=== PATIENT | female | born 1935 | race Caucasian/White ===

== ENCOUNTER → 2018-10-22 09:52 | Outpatient (CLI) | payer OTHER, SELFPAY ==
--- NOTE | 2018-10-22 | DI.RAD.S_ITS ---
PROCEDURE: XR SHOULDER RT MIN 2V INDICATIONS: PAIN IN RIGHT SHOULDER TECHNIQUE: 3 views of the shoulder were acquired. COMPARISON: None. FINDINGS: Bones: No fractures or dislocations. No suspicious bony lesions. Visualized ribs appear intact. Possible bone island projecting in the humeral head. Mild acromioclavicular and glenohumeral joint degeneration. Soft tissues: No suspicious soft tissue calcifications. IMPRESSION: Right shoulder joint degeneration. No fracture. Dictated by: Brown Giordano M.D. on 10/22/2018 at 16:32 Approved by: Brown Giordano M.D. on 10/22/2018 at 16:33
--- NOTE | 2018-10-22 | DI.RAD.S_ITS ---
PROCEDURE: XR LUMBAR SPINE 2-3V INDICATIONS: PAIN IN LEG TECHNIQUE: 3 views of the lumbar spine were acquired. COMPARISON: None. FINDINGS: Bones: No fracture or focal osseous destruction. Mild focal dextrocurvature centered at the L2-L3 level. Diffuse facet arthropathy. Adjacent sclerosis and spurring. Moderate to severe narrowing of all of the lumbar disc spaces with relative sparing at L3-L4. Trace retrolisthesis of L2 on L3. Soft tissues: Overlying bowel gas pattern is normal. No suspicious soft tissue calcifications. IMPRESSION: Severe diffuse lumbar spondylosis and facet arthropathy. Grade 1 retrolisthesis of L2 on L3. No fracture Dictated by: Brown Giordano M.D. on 10/22/2018 at 13:51 Approved by: Brown Giordano M.D. on 10/22/2018 at 13:52
--- NOTE | 2018-10-22 | DI.RAD.S_ITS ---
PROCEDURE: XR HIP W PEL IF DONE RT 2V INDICATIONS: PAIN IN LEG TECHNIQUE: AP pelvis with lateral view(s) of the right hip(s). COMPARISON: None. FINDINGS: Bones: No fractures or dislocations. Pelvic ring appears intact. No suspicious bony lesions. Mild right hip joint degeneration. Soft tissues: The visualized bowel gas pattern is normal. No suspicious soft tissue calcifications. IMPRESSION: Mild right hip joint degeneration. No fracture. Dictated by: Bronw Giordano M.D. on 10/22/2018 at 16:33 Approved by: Brown Giordano M.D. on 10/22/2018 at 16:34
== END ==
PROVIDERS: PCP Internal Medicine; Visit Provider Internal Medicine
DX: M25.511 Pain in right shoulder (principal); M79.606 Pain in leg, unspecified; M47.816 Spondylosis without myelopathy or radiculopathy, lumbar region; M43.16 Spondylolisthesis, lumbar region; M19.011 Primary osteoarthritis, right shoulder; M16.11 Unilateral primary osteoarthritis, right hip
CPT/HCPCS: 72100; 73030; 73502

== ENCOUNTER 2019-02-17 12:45 | Outpatient (RCR) | payer OTHER, SELFPAY ==
--- NOTE | 2018-11-29 15:00 | PT.OIE ---
Current Diagnoses Osteoarthritis of hip, unspecified (11/29/18) Impingement syndrome of unspecified shoulder (11/29/18) Provider Visit Care Team Role Provider Type Grazyna Obrien MD Attending Provider Non-Staff Primary Care Provider Specialty: Internal Medicine Address: [address] [place] [address], [facility] Email: [email or web address] Initial Evaluation PT-OP-A Visit Information Start: 11/22/18 17:19 Freq: Status: Active Protocol: Document 11/29/18 11:19 LRN (Rec: 11/29/18 12:45 LRN [id number]) Out-Patient Physical Therapy Visit Information Visit Information Visit Type Initial Evaluation Visit Start Time 11:23 Visit Stop Time 12:10 Total Visit Minutes 47 Visit Number 1 Number of INSURANCE PROCESSOR Visits 0 Evaluation Information Evaluation Date 11/29/18 Precautions Precautions Osteoporosis Hearing problems Arthritis Grade 1 retrolisthesis of L2 on L3 L2-L3 centered mild focal dextrocurvature L3-L4 Mod to severe narrowing of L/S disc spaces Severe diffuse lumbar spondylosis and facet arthropathy PT-OP-B Current Condition Start: 11/22/18 17:19 Freq: Status: Active Protocol: Document 11/29/18 11:19 LRN (Rec: 11/29/18 12:45 LRN [id number]) Current Condition History of Current Condition Onset Date 7 yrs ago insidious onset. Current Complaints R hip pain, no R shoulder pain . History of Current Condition Used to ski and fell on the R hip a lot. Now with R lateral hip pain for dimas past 7 years that increased in pain intensity 2 yrs ago. Pain is evident at night when changing positions and when lying on the R hip. She walks every morning with pain in the R posterior hip. The last 3 days she has had new onset of pain down the R groin, but if she starts jogging she doesn't feel the pain until she stops jogging. She does international folk dancing, and after awhile she gets pain in the anterior R hip (at level of the ASIS) that radiates downward towards the groin. She states the R shoulder is fine now and she doesn't need therapy for the shoulder. Prior Treatments and Tests X-Rays: R hip: Mild joint degeneration . No fractrures or dislocations Lumbar Spine: Grade 1 retolisthesis of L2 on L3. Mild focal dextrocurvature centered at L2-L3 Mod to severe narrowing of Lumbar disc spaces L3-L4 Future Testing and Treatments Planned Possible cortisone injection, but pt would rather not. Treatment Goals Patient/Caregiver Goals Pt goal is: Walk daily without pain Dance without pain Sleep better at night without pain Pt agreeable to a goal of pain reduction to 2/10 saying a little pain is okay. Prior Functional Status Baseline Function- ADL's Independent Baseline Function- Mobility Independent Current Functional Impairments (Reported) Functional Limitations- ADL's Sleeping hindered by pain. Functional Limitations- Recreation/ Dancing prevented by pain. Hobbies Personal Factors Other Personal Factors That May Effect Scoliosis of spine. Therapy/Recovery Osteoporosis. PT-OP-C Subjective Start: 11/22/18 17:19 Freq: Status: Active Protocol: Document 11/29/18 11:19 LRN (Rec: 11/29/18 12:45 LRN [id number]) Patient Questionnaires Lower Extremity Functional Scale LEFS Score 74 LEFS Impairment 1 to 19% Impaired (Score 63-79 ) Quick Dash- Upper Extremity Quick Dash UE Score 13.63 Quick Dash UE Impairment 1 to 19% Impaired (Score 1-19) OP-PT Pain Assessment Pain Assessment Grid Paper Pain Assessment Grid Completed Yes Location R lateral hip Pain Location Details R Posterior, lateral and at ASIS Intensity 4 Scale Used Numeric (1 - 10) Description Aching PT-OP-F Manual Assessment Start: 11/22/18 17:19 Freq: Status: Active Protocol: Document 11/29/18 11:19 LRN (Rec: 11/29/18 13:31 LRN [id number]) Manual Assessments Soft Tissue Assessment Soft Tissue Mobility Assessment Tenderness and tightness at R upper Gluteals, TFL and Iliopsoas at ASIS. PT-OP-H Neuro Start: 11/22/18 17:19 Freq: Status: Active Protocol: Document 11/29/18 11:19 LRN (Rec: 11/29/18 13:31 LRN [id number]) Sensation Evaluation Gross Sensation Gross Sensation WNL PT-OP-J Posture/Palpation/Skin Start: 11/22/18 17:19 Freq: Status: Active Protocol: Document 11/29/18 11:19 LRN (Rec: 11/29/18 13:31 LRN [id number]) Posture Evaluation Position Standing Evaluation View All positions Head/C-Spine Posture Side Bent Left Forward Head L-Spine Posture Decreased Lordosis Shoulder Posture (L) Elevated Scapula Posture (R) Depressed Pelvis Posture Posterior Tilted (R) Iliac Crest Superior Weight Distribution Weight Shifted Right Foot Arch (L) Medium Arch (R) Medium Arch Comments Posture Comments Sway back posturing. C-curve of thoracic/lumbar spine with apex left. PT-OP-K Range of Motion Start: 11/22/18 17:19 Freq: Status: Active Protocol: Document 11/29/18 11:19 LRN (Rec: 11/29/18 13:31 LRN [id number]) Hip Goniometric Range of Motion Hip Measured in Degrees Right Passive Testing Position Supine Straight Leg Raise 100 Extension 0 Abduction 40 Internal Rotation 50 External Rotation 30 Left Passive Testing Position Supine Straight Leg Raise 100 Extension 5 Internal Rotation 45 External Rotation 40 PT-OP-L Special Tests Start: 11/22/18 17:19 Freq: Status: Active Protocol: Document 11/29/18 11:19 LRN (Rec: 11/29/18 13:31 LRN [id number]) Special Tests Hip Special Tests Distraction Test Test Results - Right Comments Rule out SIJ involvement Lateral Compression Test Test Results - Right Comments Rule out SIJ involvement Straight Leg Raise Test Results - Right Stinchfield Resisted Hip Flexion Test Results - Right Scour Test Test Results - Right LEONORA Test Results + Right Comments Pain with positioning into test position PT-OP-M Strength Start: 11/22/18 17:19 Freq: Status: Active Protocol: Document 11/29/18 11:19 LRN (Rec: 11/29/18 13:31 LRN [id number]) Hip Strength Hip Manual Muscle Testing Right Flexion (L2) 3 Fair Extension (S1) 2+ Poor+ Abduction 3 Fair Adduction 2- Poor- Internal Rotation 3 Fair Left Flexion (L2) 3 Fair Extension (S1) 3 Fair Abduction 3+ Fair+ External Rotation 3 Fair Internal Rotation 4+ Good+ Knee Strength Knee Manual Muscle Testing Right Reason Not Measured WFL Left Reason Not Measured WFL Ankle/Foot Strength Ankle and Foot Manual Muscle Testing Right Reason Not Measured WFL Left Reason Not Measured WFL PT-OP-Q Treatments Start: 11/22/18 17:19 Freq: Status: Active Protocol: Document 11/29/18 11:19 LRN (Rec: 11/29/18 13:31 LRN [id number]) Therapeutic Exercises Sidelying Exercises L sidelie Sidelying Exercise Name L side 2/folded towel ~L2-L4 level for R paraspinal/lateral trunk stretch Equipment Used Folded hand towel Comments Pt educated in positioning as self care exercise vs positioning for sleep. Self-Care/Home Management Treatment Education Patient Education Posture Activities Self-Care/Home Management Activities I/S pt in use of support under L1-L5 lateral trunk in sidelie while sleeping to support lumbar spine. Extra time taken to train pt in sleeping position. PT-OP-T Assessment and Plan Start: 11/22/18 17:19 Freq: Status: Active Protocol: Document 11/29/18 11:19 LRN (Rec: 11/29/18 12:45 LRN [id number]) Physical Therapy Assessment Rehab Potential Rehabilitation Potential Excellent Evaluation Complexity Number of Personal Factors/Comorbidities 1-2 Number of Body Systems Impaired 4 or More Clinical Presentation at Evaluation Stable Impairments Impairments Functional Activities Pain Posture ROM Strength Other Concerns Age Related Concerns Impact on family and social activities. Barriers to Rehabilitation Scoliosis Osteoporosis Goals Four Impairment R hip pain rated 4/10 with sleeping and moving in bed, interrupting sleep Cutter Operator Brick Goal (LTG) Pt will be able to move in bed at night with pain no greater than 2/10 and improve abilit to sleep at night (less interrupted sleep due to pain) . LTG Duration 01/31/19 Three Impairment R hip pain rated 4/10 preventing participate in recreational dancing Usp Goal (LTG) Pt will not be hindered to dance with intermittent R hip pain no greater than 2/10. LTG Duration 01/03/19 Two Impairment Pt hindered with walking due to 4/10 pain level. Cutter Operator Brick Goal (LTG) Pt will be able to walk with intermittent R hip pain rated no greater than 2/10 that will not hinder her ability to walk. LTG Duration 01/03/19 One Impairment Lacks independent self care program. Cutter Operator Brick Goal (LTG) Pt will be independent with a self care HEP to manage her pain. LTG Duration 01/31/19 Assessment Summary Assessment Pt presents with a mechanical dysfunction of the lumbar spine, pelvis, and R hip causing intermittent R hip pain with functional activities such as walking, dancing and sleeping at night. She has a scoliosis of the spine and sway back posturing with narrowing of lumbar disc space and a grade I retrolisthesis of L2 -L3 exacerbating her R hip pain. The pt also has soft tissue dysfunction of the R hip limiting hip mobility and causing asymmetry at the hips. The pt will benefit from skilled physical therapy to reduce her R hip pain and educate the pt in self care ex 's to manage her pain. Physical Therapy Plan Frequency and Duration Frequency of Treatment 2x/Week Plan of Care Start Date 11/29/18 Plan of Care End Date 01/31/19 Therapeutic Interventions Therapeutic Interventions Gait Training Home Exercise Program Joint Mobilizations Manual Therapy Neuromuscular Re-education Patient/Caregiver Education Self-Care/Home Management Soft Tissue Mobilization Therapeutic Exercises Modalities Cold Pack/Ice Massage Electric Stimulation Hot Packs Ultrasound Next Visit Focus/Plan Next Note Type Treatment Note Next Visit Plan L sidelie to stretch R lumbar paraspinals & lateral trunk Strengthen R lumbar paraspinals & lateral trunk R hip stretches Joseph hip and core strengthening Postural training against wall or supine Gait training when appropriate .
--- NOTE | 2018-11-29 15:01 | PT.OPPOC ---
Current Diagnoses Osteoarthritis of hip, unspecified (11/29/18) Impingement syndrome of unspecified shoulder (11/29/18) Provider Visit Care Team Role Provider Type Grazyna Obrien MD Attending Provider Non-Staff Primary Care Provider Specialty: Internal Medicine Address: [address] [place] [address], [id number] Email: [email or web address] Plan Of Care PT-OP-T Assessment and Plan Start: 11/22/18 17:19 Freq: Status: Active Protocol: Document 11/29/18 11:19 LRN (Rec: 11/29/18 12:45 LRN [id number]) Physical Therapy Assessment Rehab Potential Rehabilitation Potential Excellent Evaluation Complexity Number of Personal Factors/Comorbidities 1-2 Number of Body Systems Impaired 4 or More Clinical Presentation at Evaluation Stable Impairments Impairments Functional Activities Pain Posture ROM Strength Other Concerns Age Related Concerns Impact on family and social activities. Barriers to Rehabilitation Scoliosis Osteoporosis Goals Four Impairment R hip pain rated 4/10 with sleeping and moving in bed, interrupting sleep Correction Goal (LTG) Pt will be able to move in bed at night with pain no greater than 2/10 and improve ability to sleep at night (less interrupted sleep due to pain) . LTG Duration 01/31/19 Three Impairment R hip pain rated 4/10 preventing participate in recreational dancing Bridge Rigger Goal (LTG) Pt will not be hindered to dance with intermittent R hip pain no greater than 2/10. LTG Duration 01/03/19 Two Impairment Pt hindered with walking due to 4/10 pain level. Correction Goal (LTG) Pt will be able to walk with intermittent R hip pain rated no greater than 2/10 that will not hinder her ability to walk. LTG Duration 01/03/19 One Impairment Lacks independent self care program. Correction Goal (LTG) Pt will be independent with a self care HEP to manage her pain. LTG Duration 01/31/19 Assessment Summary Assessment Pt presents with a mechanical dysfunction of the lumbar spine, pelvis, and R hip causing intermittent R hip pain with functional activities such as walking, dancing and sleeping at night. She has a scoliosis of the spine and sway back posturing with narrowing of lumbar disc space and a grade I retrolisthesis of L2 -L3 exacerbating her R hip pain. The pt also has soft tissue dysfunction of the R hip limiting hip mobility and causing asymmetry at the hips. The pt will benefit from skilled physical therapy to reduce her R hip pain and educate the pt in self care ex 's to manage her pain. Physical Therapy Plan Frequency and Duration Frequency of Treatment 2x/Week Plan of Care Start Date 11/29/18 Plan of Care End Date 01/31/19 Therapeutic Interventions Therapeutic Interventions Gait Training Home Exercise Program Joint Mobilizations Manual Therapy Neuromuscular Re-education Patient/Caregiver Education Self-Care/Home Management Soft Tissue Mobilization Therapeutic Exercises Modalities Cold Pack/Ice Massage Electric Stimulation Hot Packs Ultrasound Next Visit Focus/Plan Next Note Type Treatment Note Next Visit Plan L sidelie to stretch R lumbar paraspinals & lateral trunk Strengthen R lumbar paraspinals & lateral trunk R hip stretches Joseph hip and core strengthening Postural training against wall or supine Gait training when appropriate . Plan of Care Dates Plan of Care Start Date 11/29/18 Plan of Care End Date 01/31/19 Please Sign and Return: I have reviewed this Plan of Care and certify that the skilled therapy services above are required to meet the patient?s needs. Physician Signature Date Printed Name and Credentials Clinical Instructor Signature Printed Name and Credentials
--- NOTE | 2018-12-02 16:49 | PT.OTN ---
Current Diagnoses Osteoarthritis of hip, unspecified (12/02/18) Impingement syndrome of unspecified shoulder (12/02/18) Physical Therapy Treatment Note PT-OP-A Visit Information Start: 11/22/18 17:19 Freq: Status: Active Protocol: Document 12/02/18 09:06 LRN (Rec: 12/02/18 10:33 LRN [id number]) Out-Patient Physical Therapy Visit Information Visit Information Visit Type Treatment Note Visit Start Time 09:06 Visit Stop Time 09:53 Total Visit Minutes 47 Visit Number 2 Number of AUTO DAMAGE APPRAISER Visits 0 Evaluation Information Evaluation Date 11/29/18 Precautions Precautions Osteoporosis Hearing problems Arthritis Grade 1 retrolisthesis of L2 on L3 L2-L3 centered mild focal dextrocurvature L3-L4 Mod to severe narrowing of L/S disc spaces Severe diffuse lumbar spondylosis and facet arthropathy PT-OP-B Current Condition Start: 11/22/18 17:19 Freq: Status: Active Protocol: Document 11/29/18 11:19 LRN (Rec: 11/29/18 12:45 LRN [id number]) Current Condition History of Current Condition Onset Date 7 yrs ago insidious onset. Current Complaints R hip pain, no R shoulder pain . History of Current Condition Used to ski and fell on the R hip a lot. Now with R lateral hip pain for dimas past 7 years that increased in pain intensity 2 yrs ago. Pain is evident at night when changing positions and when lying on the R hip. She walks every morning with pain in the R posterior hip. The last 3 days she has had new onset of pain down the R groin, but if she starts jogging she doesn't feel the pain until she stops jogging. She does international folk dancing, and after awhile she gets pain in the anterior R hip (at level of the ASIS) that radiates downward towards the groin. She states the R shoulder is fine now and she doesn't need therapy for the shoulder. Prior Treatments and Tests X-Rays: R hip: Mild joint degeneration . No fractrures or dislocations Lumbar Spine: Grade 1 retolisthesis of L2 on L3. Mild focal dextrocurvature centered at L2-L3 Mod to severe narrowing of Lumbar disc spaces L3-L4 Future Testing and Treatments Planned Possible cortisone injection, but pt would rather not. Treatment Goals Patient/Caregiver Goals Pt goal is: Walk daily without pain Dance without pain Sleep better at night without pain Pt agreeable to a goal of pain reduction to 2/10 saying a little pain is okay. Prior Functional Status Baseline Function- ADL's Independent Baseline Function- Mobility Independent Current Functional Impairments (Reported) Functional Limitations- ADL's Sleeping hindered by pain. Functional Limitations- Recreation/ Dancing prevented by pain. Hobbies Personal Factors Other Personal Factors That May Effect Scoliosis of spine. Therapy/Recovery Osteoporosis. PT-OP-C Subjective Start: 11/22/18 17:19 Freq: Status: Active Protocol: Document 12/02/18 09:06 LRN (Rec: 12/02/18 10:33 LRN [id number]) OP-PT Subjective Patient Comments Patient Comments 1/2 hr of folk dancing the R hip started to hurt and had a tough night and the next day felt pretty good, which was surprising. Did the L sidelie stretch PT-OP-F Manual Assessment Start: 11/22/18 17:19 Freq: Status: Active Protocol: Document 11/29/18 11:19 LRN (Rec: 11/29/18 13:31 LRN [id number]) Manual Assessments Soft Tissue Assessment Soft Tissue Mobility Assessment Tenderness and tightness at R upper Gluteals, TFL and Iliopsoas at ASIS. PT-OP-H Neuro Start: 11/22/18 17:19 Freq: Status: Active Protocol: Document 11/29/18 11:19 LRN (Rec: 11/29/18 13:31 LRN [id number]) Sensation Evaluation Gross Sensation Gross Sensation WNL PT-OP-J Posture/Palpation/Skin Start: 11/22/18 17:19 Freq: Status: Active Protocol: Document 11/29/18 11:19 LRN (Rec: 11/29/18 13:31 LRN [id number]) Posture Evaluation Position Standing Evaluation View All positions Head/C-Spine Posture Side Bent Left Forward Head L-Spine Posture Decreased Lordosis Shoulder Posture (L) Elevated Scapula Posture (R) Depressed Pelvis Posture Posterior Tilted (R) Iliac Crest Superior Weight Distribution Weight Shifted Right Foot Arch (L) Medium Arch (R) Medium Arch Comments Posture Comments Sway back posturing. C-curve of thoracic/lumbar spine with apex left. PT-OP-K Range of Motion Start: 11/22/18 17:19 Freq: Status: Active Protocol: Document 11/29/18 11:19 LRN (Rec: 11/29/18 13:31 LRN [id number]) Hip Goniometric Range of Motion Hip Measured in Degrees Right Passive Testing Position Supine Straight Leg Raise 100 Extension 0 Abduction 40 Internal Rotation 50 External Rotation 30 Left Passive Testing Position Supine Straight Leg Raise 100 Extension 5 Internal Rotation 45 External Rotation 40 PT-OP-L Special Tests Start: 11/22/18 17:19 Freq: Status: Active Protocol: Document 11/29/18 11:19 LRN (Rec: 11/29/18 13:31 LRN [id number]) Special Tests Hip Special Tests Distraction Test Test Results - Right Comments Rule out SIJ involvement Lateral Compression Test Test Results - Right Comments Rule out SIJ involvement Straight Leg Raise Test Results - Right Stinchfield Resisted Hip Flexion Test Results - Right Scour Test Test Results - Right LEONORA Test Results + Right Comments Pain with positioning into test position PT-OP-M Strength Start: 11/22/18 17:19 Freq: Status: Active Protocol: Document 11/29/18 11:19 LRN (Rec: 11/29/18 13:31 LRN [id number]) Hip Strength Hip Manual Muscle Testing Right Flexion (L2) 3 Fair Extension (S1) 2+ Poor+ Abduction 3 Fair Adduction 2- Poor- Internal Rotation 3 Fair Left Flexion (L2) 3 Fair Extension (S1) 3 Fair Abduction 3+ Fair+ External Rotation 3 Fair Internal Rotation 4+ Good+ Knee Strength Knee Manual Muscle Testing Right Reason Not Measured WFL Left Reason Not Measured WFL Ankle/Foot Strength Ankle and Foot Manual Muscle Testing Right Reason Not Measured WFL Left Reason Not Measured WFL PT-OP-Q Treatments Start: 11/22/18 17:19 Freq: Status: Active Protocol: Document 12/02/18 09:06 LRN (Rec: 12/02/18 10:33 LRN [id number]) Cardio Equipment Recumbent Elliptical (Biodex) Duration (Minutes) 8 Resistance 3 Seat Position 5 Therapeutic Exercises Supine Exercises Arms out BKFO stretch Supine Exercise Name Supine frog stretch Reps/Minutes 2' R full body sidebend stretch Supine Exercise Name R sidebend Reps/Minutes 5' Comments Training needed to feel stretch on L side Sidelying Exercises Clamshell Side right Reps/Minutes 10x Comments Stopped due to pain at R greater trochanter Arm AB lifts Sidelying Exercise Name L sidelie Side right Resistance 1# Reps/Minutes 15x with and w/o weight R sidelie Sidelying Exercise Name Stretch to L paraspinals Equipment Used 1 folded flat pillow & double folded towel Reps/Minutes 3' Comments Manual stretch f/b passive stretch L sidelie Sidelying Exercise Name Hip AB Side right Reps/Minutes Hip AB: 10x . Manual Therapy Treatment Manual Traction Gapping Left L/S Details Positional traction of Left L/ S & Supine Comments 1) R sidelie with pillow under R side 2) Supine positioned in R SB Self-Care/Home Management Treatment Education Patient Education Home Exercise Program Activities Self-Care/Home Management Activities Issued & reviewed HEP: Positional traction of Left L/ S & Supine 1) R sidelie with pillow under R side 2) HOLD: Supine positioned in R SB 3) Supine w/Double BFO full trunk stretch 4) L sidelie: R hip AB PT-OP-T Assessment and Plan Start: 11/22/18 17:19 Freq: Status: Active Protocol: Document 12/02/18 09:06 LRN (Rec: 12/02/18 10:33 LRN [id number]) Physical Therapy Assessment Assessment Summary Assessment C-curve appears to now have apex on the Right. A little discomfort in the R hip with Biodex. R hip pain relieved with positional traction. R hip pain onset with L sidelie, R hip AB and is painful on palpation; therefore burisitis onset. Physical Therapy Plan Frequency and Duration Frequency of Treatment 2x/Week Plan of Care Start Date 11/29/18 Plan of Care End Date 01/31/19 Next Visit Focus/Plan Next Note Type Treatment Note Next Visit Plan Assess direction of C-Curve to strengthen weak side and stretch concave side. Add Postural training against wall Strengthen lengthened lumbar paraspinals & lateral trunk R hip stretches Joseph hip and core strengthening Gait training when appropriate .
--- NOTE | 2018-12-09 16:41 | PT.OTN ---
Current Diagnoses Osteoarthritis of hip, unspecified (12/09/18) Impingement syndrome of unspecified shoulder (12/09/18) Physical Therapy Treatment Note PT-OP-A Visit Information Start: 11/22/18 17:19 Freq: Status: Active Protocol: Document 12/09/18 09:04 LRN (Rec: 12/09/18 09:49 LRN [id number]) Out-Patient Physical Therapy Visit Information Visit Information Visit Type Treatment Note Visit Start Time 09:04 Visit Stop Time 09:59 Total Visit Minutes 55 Visit Number 3 Number of STEAM POWER PLANT OPERATOR Visits 0 Evaluation Information Evaluation Date 11/29/18 Precautions Precautions Osteoporosis Hearing problems Arthritis Grade 1 retrolisthesis of L2 on L3 L2-L3 centered mild focal dextrocurvature L3-L4 Mod to severe narrowing of L/S disc spaces Severe diffuse lumbar spondylosis and facet arthropathy PT-OP-B Current Condition Start: 11/22/18 17:19 Freq: Status: Active Protocol: Document 11/29/18 11:19 LRN (Rec: 11/29/18 12:45 LRN [id number]) Current Condition History of Current Condition Onset Date 7 yrs ago insidious onset. Current Complaints R hip pain, no R shoulder pain . History of Current Condition Used to ski and fell on the R hip a lot. Now with R lateral hip pain for dimas past 7 years that increased in pain intensity 2 yrs ago. Pain is evident at night when changing positions and when lying on the R hip. She walks every morning with pain in the R posterior hip. The last 3 days she has had new onset of pain down the R groin, but if she starts jogging she doesn't feel the pain until she stops jogging. She does international folk dancing, and after awhile she gets pain in the anterior R hip (at level of the ASIS) that radiates downward towards the groin. She states the R shoulder is fine now and she doesn't need therapy for the shoulder. Prior Treatments and Tests X-Rays: R hip: Mild joint degeneration . No fractrures or dislocations Lumbar Spine: Grade 1 retolisthesis of L2 on L3. Mild focal dextrocurvature centered at L2-L3 Mod to severe narrowing of Lumbar disc spaces L3-L4 Future Testing and Treatments Planned Possible cortisone injection, but pt would rather not. Treatment Goals Patient/Caregiver Goals Pt goal is: Walk daily without pain Dance without pain Sleep better at night without pain Pt agreeable to a goal of pain reduction to 2/10 saying a little pain is okay. Prior Functional Status Baseline Function- ADL's Independent Baseline Function- Mobility Independent Current Functional Impairments (Reported) Functional Limitations- ADL's Sleeping hindered by pain. Functional Limitations- Recreation/ Dancing prevented by pain. Hobbies Personal Factors Other Personal Factors That May Effect Scoliosis of spine. Therapy/Recovery Osteoporosis. PT-OP-C Subjective Start: 11/22/18 17:19 Freq: Status: Active Protocol: Document 12/09/18 09:04 LRN (Rec: 12/09/18 09:49 LRN [id number]) OP-PT Subjective Patient Comments Patient Comments R hip hurt a lot last night but was pretty good the day before. Not taking any med, but herbs. Has Meloxicam from , but doesn't think it is helpful. PT-OP-F Manual Assessment Start: 11/22/18 17:19 Freq: Status: Active Protocol: Document 11/29/18 11:19 LRN (Rec: 11/29/18 13:31 LRN [id number]) Manual Assessments Soft Tissue Assessment Soft Tissue Mobility Assessment Tenderness and tightness at R upper Gluteals, TFL and Iliopsoas at ASIS. PT-OP-H Neuro Start: 11/22/18 17:19 Freq: Status: Active Protocol: Document 11/29/18 11:19 LRN (Rec: 11/29/18 13:31 LRN [id number]) Sensation Evaluation Gross Sensation Gross Sensation WNL PT-OP-J Posture/Palpation/Skin Start: 11/22/18 17:19 Freq: Status: Active Protocol: Document 11/29/18 11:19 LRN (Rec: 11/29/18 13:31 LRN [id number]) Posture Evaluation Position Standing Evaluation View All positions Head/C-Spine Posture Side Bent Left Forward Head L-Spine Posture Decreased Lordosis Shoulder Posture (L) Elevated Scapula Posture (R) Depressed Pelvis Posture Posterior Tilted (R) Iliac Crest Superior Weight Distribution Weight Shifted Right Foot Arch (L) Medium Arch (R) Medium Arch Comments Posture Comments Sway back posturing. C-curve of thoracic/lumbar spine with apex left. PT-OP-K Range of Motion Start: 11/22/18 17:19 Freq: Status: Active Protocol: Document 11/29/18 11:19 LRN (Rec: 11/29/18 13:31 LRN [id number]) Hip Goniometric Range of Motion Hip Measured in Degrees Right Passive Testing Position Supine Straight Leg Raise 100 Extension 0 Abduction 40 Internal Rotation 50 External Rotation 30 Left Passive Testing Position Supine Straight Leg Raise 100 Extension 5 Internal Rotation 45 External Rotation 40 PT-OP-L Special Tests Start: 11/22/18 17:19 Freq: Status: Active Protocol: Document 11/29/18 11:19 LRN (Rec: 11/29/18 13:31 LRN [id number]) Special Tests Hip Special Tests Distraction Test Test Results - Right Comments Rule out SIJ involvement Lateral Compression Test Test Results - Right Comments Rule out SIJ involvement Straight Leg Raise Test Results - Right Stinchfield Resisted Hip Flexion Test Results - Right Scour Test Test Results - Right LEONORA Test Results + Right Comments Pain with positioning into test position PT-OP-M Strength Start: 11/22/18 17:19 Freq: Status: Active Protocol: Document 11/29/18 11:19 LRN (Rec: 11/29/18 13:31 LRN [id number]) Hip Strength Hip Manual Muscle Testing Right Flexion (L2) 3 Fair Extension (S1) 2+ Poor+ Abduction 3 Fair Adduction 2- Poor- Internal Rotation 3 Fair Left Flexion (L2) 3 Fair Extension (S1) 3 Fair Abduction 3+ Fair+ External Rotation 3 Fair Internal Rotation 4+ Good+ Knee Strength Knee Manual Muscle Testing Right Reason Not Measured WFL Left Reason Not Measured WFL Ankle/Foot Strength Ankle and Foot Manual Muscle Testing Right Reason Not Measured WFL Left Reason Not Measured WFL PT-OP-Q Treatments Start: 11/22/18 17:19 Freq: Status: Active Protocol: Document 12/09/18 09:04 LRN (Rec: 12/09/18 09:49 LRN [id number]) Cardio Equipment Bicycle (Upright) Duration (Minutes) 8 Resistance 3 Seat Position 3 Therapeutic Exercises Supine Exercises Fig 4 stretch Side right Reps/Minutes 3' Arms out BKFO stretch Supine Exercise Name Supine frog stretch Reps/Minutes 2' R full body sidebend stretch Supine Exercise Name R sidebend Reps/Minutes 3' Sidelying Exercises R sidelie Sidelying Exercise Name Stretch to L paraspinals Equipment Used towel & hand towel folded 2-3x Reps/Minutes 4' Comments Manual stretch f/b passive stretch L sidelie Sidelying Exercise Name Hip AB Side right Reps/Minutes Hip AB: 10x , holding 10 sec . Standing Exercises Posture against wall Standing Exercise Name Back against wall Reps/Minutes 3' Manual Therapy Treatment Manual Traction Gapping Left L/S Details Positional traction of Left L/ S & Supine Comments 1) R sidelie with folded towels under R side Self-Care/Home Management Treatment Education Patient Education Home Exercise Program Activities Self-Care/Home Management Activities Issued & reviewed HEP: R Fig 4 stretch, R hip AB sidelie. PT-OP-R Modalities Start: 11/22/18 17:19 Freq: Status: Active Protocol: Document 12/09/18 09:04 LRN (Rec: 12/09/18 09:49 LRN [id number]) Hot Pack/Cold Pack Treatment Cold Pack Location R hip Patient Position Supine Treatment Duration (minutes) 10 PT-OP-T Assessment and Plan Start: 11/22/18 17:19 Freq: Status: Active Protocol: Document 12/09/18 09:04 LRN (Rec: 12/09/18 09:49 LRN [id number]) Physical Therapy Assessment Assessment Summary Assessment Good tolerance to ex. C-curve in L/S is with apex on R side . Pt started to get R hip discomfort with leg lifts that subsided with ex. US may be helpful with bursitis. Physical Therapy Plan Frequency and Duration Frequency of Treatment 2x/Week Plan of Care Start Date 11/29/18 Plan of Care End Date 01/31/19 Next Visit Focus/Plan Next Note Type Treatment Note Next Visit Plan Strengthen lengthened R lumbar paraspinals & lateral trunk side Review R hip stretches, add stretch to R hip flexors, Right IR's, check mobility for L hip ABD Joseph hip and core strengthening , add Dual Oleg hip AB/AD Gait training when appropriate . US to R hip for pain management.
--- NOTE | 2018-12-12 16:46 | PT.OTN ---
Current Diagnoses Osteoarthritis of hip, unspecified (12/12/18) Impingement syndrome of unspecified shoulder (12/12/18) Physical Therapy Treatment Note PT-OP-A Visit Information Start: 11/22/18 17:19 Freq: Status: Active Protocol: Document 12/12/18 09:04 LRN (Rec: 12/12/18 09:05 LRN [id number]) Out-Patient Physical Therapy Visit Information Visit Information Visit Type Treatment Note Visit Start Time 09:04 Visit Stop Time 10:00 Total Visit Minutes 56 Visit Number 4 Number of DIRECTOR OF DAT[employer]ASE MARKETING Visits 0 Evaluation Information Evaluation Date 11/29/18 Precautions Precautions Osteoporosis Hearing problems Arthritis 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 Current Complaints R hip pain, no R shoulder pain . History of Current Condition Used to ski and fell on the R hip a lot. Now with R lateral hip pain for dimas past 7 years that increased in pain intensity 2 yrs ago. Pain is evident at night when changing positions and when lying on the R hip. She walks every morning with pain in the R posterior hip. The last 3 days she has had new onset of pain down the R groin, but if she starts jogging she doesn't feel the pain until she stops jogging. She does international folk dancing, and after awhile she gets pain in the anterior R hip (at level of the ASIS) that radiates downward towards the groin. She states the R shoulder is fine now and she doesn't need therapy for the shoulder. Prior Treatments and Tests X-Rays: R hip: Mild joint degeneration . No fractrures or dislocations Lumbar Spine: Grade 1 retolisthesis of L2 on L3. Mild focal dextrocurvature centered at L2-L3 Mod to severe narrowing of Lumbar disc spaces L3-L4 Future Testing and Treatments Planned Possible cortisone injection, but pt would rather not. Treatment Goals Patient/Caregiver Goals Pt goal is: Walk daily without pain Dance without pain Sleep better at night without pain Pt agreeable to a goal of pain reduction to 2/10 saying a little pain is okay. Prior Functional Status Baseline Function- ADL's Independent Baseline Function- Mobility Independent Current Functional Impairments (Reported) Functional Limitations- ADL's Sleeping hindered by pain. Functional Limitations- Recreation/ Dancing prevented by pain. Hobbies Personal Factors Other Personal Factors That May Effect Scoliosis of spine. Therapy/Recovery Osteoporosis. PT-OP-C Subjective Start: 11/22/18 17:19 Freq: Status: Active Protocol: Document 12/12/18 09:04 LRN (Rec: 12/12/18 16:44 LRN [id number]) OP-PT Subjective Patient Comments Patient Comments Pain onset is lessened. PT-OP-F Manual Assessment Start: 11/22/18 17:19 Freq: Status: Active Protocol: Document 11/29/18 11:19 LRN (Rec: 11/29/18 13:31 LRN [id number]) Manual Assessments Soft Tissue Assessment Soft Tissue Mobility Assessment Tenderness and tightness at R upper Gluteals, TFL and Iliopsoas at ASIS. PT-OP-H Neuro Start: 11/22/18 17:19 Freq: Status: Active Protocol: Document 11/29/18 11:19 LRN (Rec: 11/29/18 13:31 LRN [id number]) Sensation Evaluation Gross Sensation Gross Sensation WNL PT-OP-J Posture/Palpation/Skin Start: 11/22/18 17:19 Freq: Status: Active Protocol: Document 11/29/18 11:19 LRN (Rec: 11/29/18 13:31 LRN [id number]) Posture Evaluation Position Standing Evaluation View All positions Head/C-Spine Posture Side Bent Left Forward Head L-Spine Posture Decreased Lordosis Shoulder Posture (L) Elevated Scapula Posture (R) Depressed Pelvis Posture Posterior Tilted (R) Iliac Crest Superior Weight Distribution Weight Shifted Right Foot Arch (L) Medium Arch (R) Medium Arch Comments Posture Comments Sway back posturing. C-curve of thoracic/lumbar spine with apex left. PT-OP-K Range of Motion Start: 11/22/18 17:19 Freq: Status: Active Protocol: Document 11/29/18 11:19 LRN (Rec: 11/29/18 13:31 LRN [id number]) Hip Goniometric Range of Motion Hip Measured in Degrees Right Passive Testing Position Supine Straight Leg Raise 100 Extension 0 Abduction 40 Internal Rotation 50 External Rotation 30 Left Passive Testing Position Supine Straight Leg Raise 100 Extension 5 Internal Rotation 45 External Rotation 40 PT-OP-L Special Tests Start: 11/22/18 17:19 Freq: Status: Active Protocol: Document 11/29/18 11:19 LRN (Rec: 11/29/18 13:31 LRN [id number]) Special Tests Hip Special Tests Distraction Test Test Results - Right Comments Rule out SIJ involvement Lateral Compression Test Test Results - Right Comments Rule out SIJ involvement Straight Leg Raise Test Results - Right Stinchfield Resisted Hip Flexion Test Results - Right Scour Test Test Results - Right LEONORA Test Results + Right Comments Pain with positioning into test position PT-OP-M Strength Start: 11/22/18 17:19 Freq: Status: Active Protocol: Document 11/29/18 11:19 LRN (Rec: 11/29/18 13:31 LRN [id number]) Hip Strength Hip Manual Muscle Testing Right Flexion (L2) 3 Fair Extension (S1) 2+ Poor+ Abduction 3 Fair Adduction 2- Poor- Internal Rotation 3 Fair Left Flexion (L2) 3 Fair Extension (S1) 3 Fair Abduction 3+ Fair+ External Rotation 3 Fair Internal Rotation 4+ Good+ Knee Strength Knee Manual Muscle Testing Right Reason Not Measured WFL Left Reason Not Measured WFL Ankle/Foot Strength Ankle and Foot Manual Muscle Testing Right Reason Not Measured WFL Left Reason Not Measured WFL PT-OP-Q Treatments Start: 11/22/18 17:19 Freq: Status: Active Protocol: Document 12/12/18 09:04 LRN (Rec: 12/12/18 09:05 LRN [id number]) Cardio Equipment Bicycle (Upright) Duration (Minutes) 6 Resistance 3 Seat Position 3 Therapeutic Exercises Supine Exercises Hip AB Supine Exercise Name R Hip AB Side right Reps/Minutes 10 x Comments Extra time taken for proper movement and training Fig 4 stretch Side right Reps/Minutes 3' Arms out BKFO stretch Supine Exercise Name Supine frog stretch Reps/Minutes 2' R full body sidebend stretch Supine Exercise Name R sidebend Reps/Minutes 3' Comments Training needed to feel stretch on L side Sidelying Exercises L IT Band stretch Sidelying Exercise Name R sidelie with foot off edge behind Reps/Minutes 1 Comments Pain on return Arm AB lifts Side right Resistance 1# Reps/Minutes 15x with and w/o weight R sidelie Sidelying Exercise Name Stretch to L paraspinals Equipment Used towel 2-3x Reps/Minutes 4' Comments Manual stretch L sidelie Sidelying Exercise Name Hip AB, folded towel under ~ mid thoracic Side right Reps/Minutes Assisted Hip AB: 10x Standing Exercises Posture against wall Standing Exercise Name Back against wall Reps/Minutes 3' Manual Therapy Treatment Manual Traction Gapping Left L/S Details Positional traction of Left L/ S & Supine Comments 1) R sidelie with folded towels under R side Self-Care/Home Management Treatment Education Patient Education Home Exercise Program Activities Self-Care/Home Management Activities Written HEP Issued & reviewed. Issued & reviewed TFL stretch in standing and sidelie. PT-OP-R Modalities Start: 11/22/18 17:19 Freq: Status: Active Protocol: Document 12/09/18 09:04 LRN (Rec: 12/09/18 09:49 LRN [id number]) Hot Pack/Cold Pack Treatment Cold Pack Location R hip Patient Position Supine Treatment Duration (minutes) 10 PT-OP-T Assessment and Plan Start: 11/22/18 17:19 Freq: Status: Active Protocol: Document 12/12/18 09:04 LRN (Rec: 12/12/18 09:05 LRN [id number]) Physical Therapy Assessment Goals Four Impairment R hip pain rated 4/10 with sleeping and moving in bed, interrupting sleep Communications Advisor Goal (LTG) Pt will be able to move in bed at night with pain no greater than 2/10 and improve ability to sleep at night (less interrupted sleep due to pain) . LTG Duration 01/31/19 Three Impairment R hip pain rated 4/10 preventing participate in recreational dancing Assisted Goal (LTG) Pt will not be hindered to dance with intermittent R hip pain no greater than 2/10. LTG Duration 01/03/19 Two Impairment Pt hindered with walking due to 4/10 pain level. Communications Advisor Goal (LTG) Pt will be able to walk with intermittent R hip pain rated no greater than 2/10 that will not hinder her ability to walk. LTG Duration 01/03/19 One Impairment Lacks independent self care program. Communications Advisor Goal (LTG) Pt will be independent with a self care HEP to manage her pain. LTG Duration 01/31/19 Assessment Summary Assessment Lessened C-curve in L/S, apex R side. US may be helpful if bursitis symptoms. Pain symptoms lessening. Physical Therapy Plan Frequency and Duration Frequency of Treatment 2x/Week Plan of Care Start Date 11/29/18 Plan of Care End Date 01/31/19 Next Visit Focus/Plan Next Note Type Treatment Note Next Visit Plan Strengthen lengthened R lumbar paraspinals & lateral trunk side Add stretch to R hip flexors, Right IR's, check mobility for L hip ABD Joseph hip and core strengthening , add Dual Oleg hip AB/AD Gait training when appropriate . US to R hip for pain management as needed.
--- NOTE | 2018-12-16 15:34 | PT.OTN ---
Current Diagnoses Osteoarthritis of hip, unspecified (12/16/18) Impingement syndrome of unspecified shoulder (12/16/18) Physical Therapy Treatment Note PT-OP-A Visit Information Start: 11/22/18 17:19 Freq: Status: Active Protocol: Document 12/16/18 09:05 LRN (Rec: 12/16/18 09:49 LRN [id number]) Out-Patient Physical Therapy Visit Information Visit Information Visit Type Treatment Note Visit Start Time 09:05 Visit Stop Time 09:46 Total Visit Minutes 41 Visit Number 5 Number of FREIGHT DISPATCHER Visits 0 Evaluation Information Evaluation Date 11/29/18 Precautions Precautions Osteoporosis Hearing problems Arthritis Grade 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 Current Complaints R hip pain, no R shoulder pain . History of Current Condition Used to ski and fell on the R hip a lot. Now with R lateral hip pain for dimas past 7 years that increased in pain intensity 2 yrs ago. Pain is evident at night when changing positions and when lying on the R hip. She walks every morning with pain in the R posterior hip. The last 3 days she has had new onset of pain down the R groin, but if she starts jogging she doesn't feel the pain until she stops jogging. She does international folk dancing, and after awhile she gets pain in the anterior R hip (at level of the ASIS) that radiates downward towards the groin. She states the R shoulder is fine now and she doesn't need therapy for the shoulder. Prior Treatments and Tests X-Rays: R hip: Mild joint degeneration . No fractrures or dislocations Lumbar Spine: Grade 1 retolisthesis of L2 on L3. Mild focal dextrocurvature centered at L2-L3 Mod to severe narrowing of Lumbar disc spaces L3-L4 Future Testing and Treatments Planned Possible cortisone injection, but pt would rather not. Treatment Goals Patient/Caregiver Goals Pt goal is: Walk daily without pain Dance without pain Sleep better at night without pain Pt agreeable to a goal of pain reduction to 2/10 saying a little pain is okay. Prior Functional Status Baseline Function- ADL's Independent Baseline Function- Mobility Independent Current Functional Impairments (Reported) Functional Limitations- ADL's Sleeping hindered by pain. Functional Limitations- Recreation/ Dancing prevented by pain. Hobbies Personal Factors Other Personal Factors That May Effect Scoliosis of spine. Therapy/Recovery Osteoporosis. PT-OP-C Subjective Start: 11/22/18 17:19 Freq: Status: Active Protocol: Document 12/16/18 09:05 LRN (Rec: 12/16/18 09:49 LRN [id number]) OP-PT Subjective Patient Comments Patient Comments States she did the sidelie heel raise exercise even though it hurt, so hip still hurts. States she was also doing planks with grandkids, so overdid exercise. PT-OP-F Manual Assessment Start: 11/22/18 17:19 Freq: Status: Active Protocol: Document 11/29/18 11:19 LRN (Rec: 11/29/18 13:31 LRN [id number]) Manual Assessments Soft Tissue Assessment Soft Tissue Mobility Assessment Tenderness and tightness at R upper Gluteals, TFL and Iliopsoas at ASIS. PT-OP-H Neuro Start: 11/22/18 17:19 Freq: Status: Active Protocol: Document 11/29/18 11:19 LRN (Rec: 11/29/18 13:31 LRN [id number]) Sensation Evaluation Gross Sensation Gross Sensation WNL PT-OP-J Posture/Palpation/Skin Start: 11/22/18 17:19 Freq: Status: Active Protocol: Document 11/29/18 11:19 LRN (Rec: 11/29/18 13:31 LRN [id number]) Posture Evaluation Position Standing Evaluation View All positions Head/C-Spine Posture Side Bent Left Forward Head L-Spine Posture Decreased Lordosis Shoulder Posture (L) Elevated Scapula Posture (R) Depressed Pelvis Posture Posterior Tilted (R) Iliac Crest Superior Weight Distribution Weight Shifted Right Foot Arch (L) Medium Arch (R) Medium Arch Comments Posture Comments Sway back posturing. C-curve of thoracic/lumbar spine with apex left. PT-OP-K Range of Motion Start: 11/22/18 17:19 Freq: Status: Active Protocol: Document 11/29/18 11:19 LRN (Rec: 11/29/18 13:31 LRN [id number]) Hip Goniometric Range of Motion Hip Measured in Degrees Right Passive Testing Position Supine Straight Leg Raise 100 Extension 0 Abduction 40 Internal Rotation 50 External Rotation 30 Left Passive Testing Position Supine Straight Leg Raise 100 Extension 5 Internal Rotation 45 External Rotation 40 PT-OP-L Special Tests Start: 11/22/18 17:19 Freq: Status: Active Protocol: Document 11/29/18 11:19 LRN (Rec: 11/29/18 13:31 LRN [id number]) Special Tests Hip Special Tests Distraction Test Test Results - Right Comments Rule out SIJ involvement Lateral Compression Test Test Results - Right Comments Rule out SIJ involvement Straight Leg Raise Test Results - Right Stinchfield Resisted Hip Flexion Test Results - Right Scour Test Test Results - Right LEONORA Test Results + Right Comments Pain with positioning into test position PT-OP-M Strength Start: 11/22/18 17:19 Freq: Status: Active Protocol: Document 11/29/18 11:19 LRN (Rec: 11/29/18 13:31 LRN [id number]) Hip Strength Hip Manual Muscle Testing Right Flexion (L2) 3 Fair Extension (S1) 2+ Poor+ Abduction 3 Fair Adduction 2- Poor- Internal Rotation 3 Fair Left Flexion (L2) 3 Fair Extension (S1) 3 Fair Abduction 3+ Fair+ External Rotation 3 Fair Internal Rotation 4+ Good+ Knee Strength Knee Manual Muscle Testing Right Reason Not Measured WFL Left Reason Not Measured WFL Ankle/Foot Strength Ankle and Foot Manual Muscle Testing Right Reason Not Measured WFL Left Reason Not Measured WFL PT-OP-Q Treatments Start: 11/22/18 17:19 Freq: Status: Active Protocol: Document 12/16/18 09:05 LRN (Rec: 12/16/18 09:49 LRN [id number]) Cardio Equipment Bicycle (Upright) Duration (Minutes) 6 Resistance 3 Seat Position 3 Gym Equipment Cable Column (Body Solid) Hip Adduction Details Seat 3 holes showing. Hip out at #3 & #2 Resistance 10 Reps/Time 10 x, working on control of return Hip Abduction Details Seat 3 holes showing Resistance 10 Reps/Time 10 x, working on control of return Therapeutic Exercises Supine Exercises Hip AB Supine Exercise Name R Hip AB Side right Reps/Minutes 10 x Comments Extra time taken for proper movement and training Fig 4 stretch Side right Reps/Minutes 3' Sidelying Exercises R sidelie Sidelying Exercise Name Stretch to L paraspinals Equipment Used towel 2-3x Reps/Minutes 4' Comments Manual stretch L sidelie Sidelying Exercise Name Hip AB, folded towel under ~ mid thoracic Side right Reps/Minutes Assisted Hip AB: 10x Manual Therapy Treatment Joint Mobilizations Innominate mob Joint Correction for inflared R and outflared L innominate Direction C/R Body Position Supine Comments + response Manual Traction Gapping Left L/S Details Positional traction of Left L/ S & Supine Comments 1) R sidelie with folded towels under R side PT-OP-R Modalities Start: 11/22/18 17:19 Freq: Status: Active Protocol: Document 12/09/18 09:04 LRN (Rec: 12/09/18 09:49 LRN [id number]) Hot Pack/Cold Pack Treatment Cold Pack Location R hip Patient Position Supine Treatment Duration (minutes) 10 PT-OP-T Assessment and Plan Start: 11/22/18 17:19 Freq: Status: Active Protocol: Document 12/16/18 09:05 LRN (Rec: 12/16/18 09:49 LRN [id number]) Physical Therapy Assessment Assessment Summary Assessment Pt slowly improving. Today pt was tender at TFL muscle, not at greater trochanter in supine, only with standing. Physical Therapy Plan Frequency and Duration Frequency of Treatment 2x/Week Plan of Care Start Date 11/29/18 Plan of Care End Date 01/31/19 Next Visit Focus/Plan Next Note Type Treatment Note Next Visit Plan Recheck hip mobility Strengthen lengthened R lumbar paraspinals & lateral trunk side Add stretch to R hip flexors, Right IR's, check mobility for L hip ABD Joseph hip and core strengthening Assess Gait for need of gait training. US to R hip for pain management as needed.
--- NOTE | 2018-12-19 15:43 | PT.OTN ---
Current Diagnoses Osteoarthritis of hip, unspecified (12/19/18) Impingement syndrome of unspecified shoulder (12/19/18) Physical Therapy Treatment Note PT-OP-A Visit Information Start: 11/22/18 17:19 Freq: Status: Active Protocol: Document 12/19/18 09:03 LRN (Rec: 12/19/18 09:47 LRN [id number]) Out-Patient Physical Therapy Visit Information Visit Information Visit Type Treatment Note Visit Start Time 09:03 Visit Stop Time 09:47 Total Visit Minutes 44 Visit Number 6 Number of WELDING INSTRUCTOR Visits 0 Evaluation Information Evaluation Date 11/29/18 Precautions Precautions Osteoporosis Hearing problems Arthritis 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 Current Complaints R hip pain, no R shoulder pain . History of Current Condition Used to ski and fell on the R hip a lot. Now with R lateral hip pain for dimas past 7 years that increased in pain intensity 2 yrs ago. Pain is evident at night when changing positions and when lying on the R hip. She walks every morning with pain in the R posterior hip. The last 3 days she has had new onset of pain down the R groin, but if she starts jogging she doesn't feel the pain until she stops jogging. She does international folk dancing, and after awhile she gets pain in the anterior R hip (at level of the ASIS) that radiates downward towards the groin. She states the R shoulder is fine now and she doesn't need therapy for the shoulder. Prior Treatments and Tests X-Rays: R hip: Mild joint degeneration . No fractrures or dislocations Lumbar Spine: Grade 1 retolisthesis of L2 on L3. Mild focal dextrocurvature centered at L2-L3 Mod to severe narrowing of Lumbar disc spaces L3-L4 Future Testing and Treatments Planned Possible cortisone injection, but pt would rather not. Treatment Goals Patient/Caregiver Goals Pt goal is: Walk daily without pain Dance without pain Sleep better at night without pain Pt agreeable to a goal of pain reduction to 2/10 saying a little pain is okay. Prior Functional Status Baseline Function- ADL's Independent Baseline Function- Mobility Independent Current Functional Impairments (Reported) Functional Limitations- ADL's Sleeping hindered by pain. Functional Limitations- Recreation/ Dancing prevented by pain. Hobbies Personal Factors Other Personal Factors That May Effect Scoliosis of spine. Therapy/Recovery Osteoporosis. PT-OP-C Subjective Start: 11/22/18 17:19 Freq: Status: Active Protocol: Document 12/19/18 09:03 LRN (Rec: 12/19/18 09:47 LRN [id number]) OP-PT Subjective Patient Comments Patient Comments Pain 2-3/10 in upper hip ( pointing to upper gluteals). Cryotherapy at home did not help, but warm bath is helpful . PT-OP-F Manual Assessment Start: 11/22/18 17:19 Freq: Status: Active Protocol: Document 11/29/18 11:19 LRN (Rec: 11/29/18 13:31 LRN [id number]) Manual Assessments Soft Tissue Assessment Soft Tissue Mobility Assessment Tenderness and tightness at R upper Gluteals, TFL and Iliopsoas at ASIS. PT-OP-H Neuro Start: 11/22/18 17:19 Freq: Status: Active Protocol: Document 11/29/18 11:19 LRN (Rec: 11/29/18 13:31 LRN [id number]) Sensation Evaluation Gross Sensation Gross Sensation WNL PT-OP-J Posture/Palpation/Skin Start: 11/22/18 17:19 Freq: Status: Active Protocol: Document 11/29/18 11:19 LRN (Rec: 11/29/18 13:31 LRN [id number]) Posture Evaluation Position Standing Evaluation View All positions Head/C-Spine Posture Side Bent Left Forward Head L-Spine Posture Decreased Lordosis Shoulder Posture (L) Elevated Scapula Posture (R) Depressed Pelvis Posture Posterior Tilted (R) Iliac Crest Superior Weight Distribution Weight Shifted Right Foot Arch (L) Medium Arch (R) Medium Arch Comments Posture Comments Sway back posturing. C-curve of thoracic/lumbar spine with apex left. PT-OP-K Range of Motion Start: 11/22/18 17:19 Freq: Status: Active Protocol: Document 12/19/18 09:03 LRN (Rec: 12/19/18 15:41 LRN [id number]) Hip Goniometric Range of Motion Hip Measured in Degrees Right Passive Testing Position Supine Abduction 35 Internal Rotation 47 External Rotation 47 Left Passive Testing Position Supine Abduction 35 Internal Rotation 47 External Rotation 45 PT-OP-L Special Tests Start: 11/22/18 17:19 Freq: Status: Active Protocol: Document 11/29/18 11:19 LRN (Rec: 11/29/18 13:31 LRN [id number]) Special Tests Hip Special Tests Distraction Test Test Results - Right Comments Rule out SIJ involvement Lateral Compression Test Test Results - Right Comments Rule out SIJ involvement Straight Leg Raise Test Results - Right Stinchfield Resisted Hip Flexion Test Results - Right Scour Test Test Results - Right LEONORA Test Results + Right Comments Pain with positioning into test position PT-OP-M Strength Start: 11/22/18 17:19 Freq: Status: Active Protocol: Document 11/29/18 11:19 LRN (Rec: 11/29/18 13:31 LRN [id number]) Hip Strength Hip Manual Muscle Testing Right Flexion (L2) 3 Fair Extension (S1) 2+ Poor+ Abduction 3 Fair Adduction 2- Poor- Internal Rotation 3 Fair Left Flexion (L2) 3 Fair Extension (S1) 3 Fair Abduction 3+ Fair+ External Rotation 3 Fair Internal Rotation 4+ Good+ Knee Strength Knee Manual Muscle Testing Right Reason Not Measured WFL Left Reason Not Measured WFL Ankle/Foot Strength Ankle and Foot Manual Muscle Testing Right Reason Not Measured WFL Left Reason Not Measured WFL PT-OP-Q Treatments Start: 11/22/18 17:19 Freq: Status: Active Protocol: Document 12/19/18 09:03 LRN (Rec: 12/19/18 09:47 LRN [id number]) Cardio Equipment Bicycle (Upright) Duration (Minutes) 8 Resistance 3 Seat Position 3 Therapeutic Exercises Supine Exercises DKTC Supine Exercise Name DKTC stretch Side bilateral Reps/Minutes 1'x2 Fig 4 stretch Supine Exercise Name Fig 4 stretch Side right Reps/Minutes 3' Arms out BKFO stretch Supine Exercise Name Supine frog stretch Reps/Minutes 2' R full body sidebend stretch Supine Exercise Name R sidebend Reps/Minutes 3' Comments Training needed to feel stretch on L side Sidelying Exercises R sidelie Sidelying Exercise Name Stretch to L paraspinals Equipment Used towel 2-3x Reps/Minutes 4' Comments Manual stretch L sidelie Sidelying Exercise Name Hip AB, folded towel under ~ mid thoracic Side right Reps/Minutes Assisted Hip AB: 10x Standing Exercises L arm/R leg lift to side Standing Exercise Name L arm/R leg lift Equipment Used Bar Reps/Minutes 10 x, holding 10 secs Posture against wall Standing Exercise Name Away from the wall with phy cuing Reps/Minutes 3' Manual Therapy Treatment Joint Mobilizations L3, L3 Joint AP [place] Body Position Sidelie Comments 15' PT-OP-R Modalities Start: 11/22/18 17:19 Freq: Status: Active Protocol: Document 12/09/18 09:04 LRN (Rec: 12/09/18 09:49 LRN [id number]) Hot Pack/Cold Pack Treatment Cold Pack Location R hip Patient Position Supine Treatment Duration (minutes) 10 PT-OP-T Assessment and Plan Start: 11/22/18 17:19 Freq: Status: Active Protocol: Document 12/19/18 09:03 LRN (Rec: 12/19/18 09:47 LRN [id number]) Physical Therapy Assessment Goals Four Impairment R hip pain rated 4/10 with sleeping and moving in bed, interrupting sleep Relocation Commissioner Goal (LTG) Pt will be able to move in bed at night with pain no greater than 2/10 and improve ability to sleep at night (less interrupted sleep due to pain) . LTG Duration 01/31/19 (12/19/18 Pain5/10) Three Impairment R hip pain rated 4/10 preventing participate in recreational dancing Halfway Goal (LTG) Pt will not be hindered to dance with intermittent R hip pain no greater than 2/10. LTG Duration 01/03/19 (12/19/18: Pain after a bit of dancing) Two Impairment Pt hindered with walking due to 4/10 pain level. Relocation Commissioner Goal (LTG) Pt will be able to walk with intermittent R hip pain rated no greater than 2/10 that will not hinder her ability to walk. LTG Duration 01/03/19 One Impairment Lacks independent self care program. Relocation Commissioner Goal (LTG) Pt will be independent with a self care HEP to manage her pain. LTG Duration 01/31/19 Assessment Summary Assessment Pt did go dancing again with pain present. Slow recovery from flare up 12/15/18. + response to treatment with no complaints of R hip or leg pain after therapy. Pain possibly from L2-L3 retrolisthesis. Hip mobilty and lumbar alignment is normalizing. Physical Therapy Plan Frequency and Duration Frequency of Treatment 2x/Week Plan of Care Start Date 11/29/18 Plan of Care End Date 01/31/19 Next Visit Focus/Plan Next Note Type Treatment Note Next Visit Plan Strengthen lengthened R lumbar paraspinals & lateral trunk side Add stretch to R hip flexors, Joseph hip and core strengthening Assess Gait for need of gait training. US to R hip for pain management as needed.
--- NOTE | 2018-12-24 14:57 | PT.OTN ---
Current Diagnoses Osteoarthritis of hip, unspecified (12/24/18) Impingement syndrome of unspecified shoulder (12/24/18) Physical Therapy Treatment Note PT-OP-A Visit Information Start: 11/22/18 17:19 Freq: Status: Active Protocol: Document 12/24/18 13:35 LRN (Rec: 12/24/18 14:45 LRN [id number]) Out-Patient Physical Therapy Visit Information Visit Information Visit Type Treatment Note Visit Start Time 13:35 Visit Stop Time 14:30 Total Visit Minutes 55 Visit Number 7 Number of [employer] WORKER Visits 0 Evaluation Information Evaluation Date 11/29/18 Precautions Precautions Osteoporosis Hearing problems Arthritis Grade 1 retrolisthesis of L2 on L3 L2-L3 centered mild focal dextrocurvature L3-L4 Mod to severe narrowing of L/S disc spaces Severe diffuse lumbar spondylosis and facet arthropathy PT-OP-B Current Condition Start: 11/22/18 17:19 Freq: Status: Active Protocol: Document 11/29/18 11:19 LRN (Rec: 11/29/18 12:45 LRN [id number]) Current Condition History of Current Condition Onset Date 7 yrs ago insidious onset. Current Complaints R hip pain, no R shoulder pain . History of Current Condition Used to ski and fell on the R hip a lot. Now with R lateral hip pain for dimas past 7 years that increased in pain intensity 2 yrs ago. Pain is evident at night when changing positions and when lying on the R hip. She walks every morning with pain in the R posterior hip. The last 3 days she has had new onset of pain down the R groin, but if she starts jogging she doesn't feel the pain until she stops jogging. She does international folk dancing, and after awhile she gets pain in the anterior R hip (at level of the ASIS) that radiates downward towards the groin. She states the R shoulder is fine now and she doesn't need therapy for the shoulder. Prior Treatments and Tests X-Rays: R hip: Mild joint degeneration . No fractrures or dislocations Lumbar Spine: Grade 1 retolisthesis of L2 on L3. Mild focal dextrocurvature centered at L2-L3 Mod to severe narrowing of Lumbar disc spaces L3-L4 Future Testing and Treatments Planned Possible cortisone injection, but pt would rather not. Treatment Goals Patient/Caregiver Goals Pt goal is: Walk daily without pain Dance without pain Sleep better at night without pain Pt agreeable to a goal of pain reduction to 2/10 saying a little pain is okay. Prior Functional Status Baseline Function- ADL's Independent Baseline Function- Mobility Independent Current Functional Impairments (Reported) Functional Limitations- ADL's Sleeping hindered by pain. Functional Limitations- Recreation/ Dancing prevented by pain. Hobbies Personal Factors Other Personal Factors That May Effect Scoliosis of spine. Therapy/Recovery Osteoporosis. PT-OP-C Subjective Start: 11/22/18 17:19 Freq: Status: Active Protocol: Document 12/24/18 13:35 LRN (Rec: 12/24/18 14:45 LRN [id number]) OP-PT Subjective Patient Comments Patient Comments States she hurt more over the weekend, had to take IBP mid morning today. Reports she hurts currently in the R hip, anterolateral upper thigh and lateral lower leg. States she did gardening this weekend. PT-OP-F Manual Assessment Start: 11/22/18 17:19 Freq: Status: Active Protocol: Document 11/29/18 11:19 LRN (Rec: 11/29/18 13:31 LRN [id number]) Manual Assessments Soft Tissue Assessment Soft Tissue Mobility Assessment Tenderness and tightness at R upper Gluteals, TFL and Iliopsoas at ASIS. PT-OP-H Neuro Start: 11/22/18 17:19 Freq: Status: Active Protocol: Document 11/29/18 11:19 LRN (Rec: 11/29/18 13:31 LRN [id number]) Sensation Evaluation Gross Sensation Gross Sensation WNL PT-OP-J Posture/Palpation/Skin Start: 11/22/18 17:19 Freq: Status: Active Protocol: Document 11/29/18 11:19 LRN (Rec: 11/29/18 13:31 LRN [id number]) Posture Evaluation Position Standing Evaluation View All positions Head/C-Spine Posture Side Bent Left Forward Head L-Spine Posture Decreased Lordosis Shoulder Posture (L) Elevated Scapula Posture (R) Depressed Pelvis Posture Posterior Tilted (R) Iliac Crest Superior Weight Distribution Weight Shifted Right Foot Arch (L) Medium Arch (R) Medium Arch Comments Posture Comments Sway back posturing. C-curve of thoracic/lumbar spine with apex left. PT-OP-K Range of Motion Start: 11/22/18 17:19 Freq: Status: Active Protocol: Document 12/19/18 09:03 LRN (Rec: 12/19/18 15:41 LRN [id number]) Hip Goniometric Range of Motion Hip Measured in Degrees Right Passive Testing Position Supine Abduction 35 Internal Rotation 47 External Rotation 47 Left Passive Testing Position Supine Abduction 35 Internal Rotation 47 External Rotation 45 PT-OP-L Special Tests Start: 11/22/18 17:19 Freq: Status: Active Protocol: Document 11/29/18 11:19 LRN (Rec: 11/29/18 13:31 LRN [id number]) Special Tests Hip Special Tests Distraction Test Test Results - Right Comments Rule out SIJ involvement Lateral Compression Test Test Results - Right Comments Rule out SIJ involvement Straight Leg Raise Test Results - Right Stinchfield Resisted Hip Flexion Test Results - Right Scour Test Test Results - Right LEONORA Test Results + Right Comments Pain with positioning into test position PT-OP-M Strength Start: 11/22/18 17:19 Freq: Status: Active Protocol: Document 11/29/18 11:19 LRN (Rec: 11/29/18 13:31 LRN [id number]) Hip Strength Hip Manual Muscle Testing Right Flexion (L2) 3 Fair Extension (S1) 2+ Poor+ Abduction 3 Fair Adduction 2- Poor- Internal Rotation 3 Fair Left Flexion (L2) 3 Fair Extension (S1) 3 Fair Abduction 3+ Fair+ External Rotation 3 Fair Internal Rotation 4+ Good+ Knee Strength Knee Manual Muscle Testing Right Reason Not Measured WFL Left Reason Not Measured WFL Ankle/Foot Strength Ankle and Foot Manual Muscle Testing Right Reason Not Measured WFL Left Reason Not Measured WFL PT-OP-Q Treatments Start: 11/22/18 17:19 Freq: Status: Active Protocol: Document 12/24/18 13:35 LRN (Rec: 12/24/18 14:38 LRN [id number]) Therapeutic Exercises Supine Exercises Self lumbar traction with chair Supine Exercise Name Self lumbar traction w/chair Reps/Minutes 3' x 2 Self manual traction w/arms Supine Exercise Name Self manual lumbar traction w/ arms Side bilateral Reps/Minutes 3' x 3 Prone Exercises Prone press ups Prone Exercise Name Prone press ups Reps/Minutes 10 x 3 Comments Pt had soreness in R lateral arm. Standing Exercises Self lumbar traction Standing Exercise Name Leaning over surface for lumbar traction Side bilateral Reps/Minutes 3' x 3 R hip AB Standing Exercise Name R Hip AB Side right Reps/Minutes 8' Comments Free standing, and against wall. Extra time to train proper positioning L arm/R leg lift to side Standing Exercise Name L arm/R leg lift Equipment Used Bar Reps/Minutes 10 x, holding 10 secs Posture against wall Standing Exercise Name Away from the wall with phy cuing Reps/Minutes 3' Self-Care/Home Management Treatment Education Patient Education Home Exercise Program Activities Self-Care/Home Management Activities HEP: Issued and reviewed ex's: Prone press ups and standing trunk ext with pics for self lumbar traction in supine with arms and chair and in standing. PT-OP-R Modalities Start: 11/22/18 17:19 Freq: Status: Active Protocol: Document 12/09/18 09:04 LRN (Rec: 12/09/18 09:49 LRN [id number]) Hot Pack/Cold Pack Treatment Cold Pack Location R hip Patient Position Supine Treatment Duration (minutes) 10 PT-OP-T Assessment and Plan Start: 11/22/18 17:19 Freq: Status: Active Protocol: Document 12/24/18 13:35 LRN (Rec: 12/24/18 14:38 LRN [id number]) Physical Therapy Assessment Progress Towards Goals Progress Towards Goals Slow Progress - Other Progress Comments Progress due to pt active lifestyle causing R LE radicular pain onset ( gardening). Assessment Summary Assessment Pt required extra time for training with each new activity/exercise. She required written instructions in addition to printed instructions for cuing of how to do exercises. Pt had difficulty performing R hip AB in standing properly, even with extra training. Further review is needed. Pt appears to have flared up her back with gardening activities and needed self care review of body mechanics with gardening. Weather change also may be effecting her arthritis pain onset. Pt has R hip pain with gait probably due to postural changes. Physical Therapy Plan Frequency and Duration Frequency of Treatment 2x/Week Plan of Care Start Date 11/29/18 Plan of Care End Date 01/31/19 Next Visit Focus/Plan Next Note Type Treatment Note Next Visit Plan Check R hip pain for bursitis and US to R hip for pain management as needed. Strengthen lengthened R lumbar paraspinals & lateral trunk Add stretch to R hip flexors when pt is more stable in her pain onset, Cont Joseph hip and core strengthening Assess Gait for need of gait training.
--- NOTE | 2018-12-24 14:58 | PT.OTN ---
Current Diagnoses Osteoarthritis of hip, unspecified (12/24/18) Impingement syndrome of unspecified shoulder (12/24/18) Physical Therapy Treatment Note PT-OP-A Visit Information Start: 11/22/18 17:19 Freq: Status: Active Protocol: Document 12/24/18 13:35 LRN (Rec: 12/24/18 14:45 LRN [id number]) Out-Patient Physical Therapy Visit Information Visit Information Visit Type Treatment Note Visit Start Time 13:35 Visit Stop Time 14:30 Total Visit Minutes 55 Visit Number 7 Number of SECURITY MANAGEMENT SPECIALIST Visits 0 Evaluation Information Evaluation Date 11/29/18 Precautions Precautions Osteoporosis Hearing problems Arthritis Grade 1 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 Current Complaints R hip pain, no R shoulder pain . History of Current Condition Used to ski and fell on the R hip a lot. Now with R lateral hip pain for dimas past 7 years that increased in pain intensity 2 yrs ago. Pain is evident at night when changing positions and when lying on the R hip. She walks every morning with pain in the R posterior hip. The last 3 days she has had new onset of pain down the R groin, but if she starts jogging she doesn't feel the pain until she stops jogging. She does international folk dancing, and after awhile she gets pain in the anterior R hip (at level of the ASIS) that radiates downward towards the groin. She states the R shoulder is fine now and she doesn't need therapy for the shoulder. Prior Treatments and Tests X-Rays: R hip: Mild joint degeneration . No fractrures or dislocations Lumbar Spine: Grade 1 retolisthesis of L2 on L3. Mild focal dextrocurvature centered at L2-L3 Mod to severe narrowing of Lumbar disc spaces L3-L4 Future Testing and Treatments Planned Possible cortisone injection, but pt would rather not. Treatment Goals Patient/Caregiver Goals Pt goal is: Walk daily without pain Dance without pain Sleep better at night without pain Pt agreeable to a goal of pain reduction to 2/10 saying a little pain is okay. Prior Functional Status Baseline Function- ADL's Independent Baseline Function- Mobility Independent Current Functional Impairments (Reported) Functional Limitations- ADL's Sleeping hindered by pain. Functional Limitations- Recreation/ Dancing prevented by pain. Hobbies Personal Factors Other Personal Factors That May Effect Scoliosis of spine. Therapy/Recovery Osteoporosis. PT-OP-C Subjective Start: 11/22/18 17:19 Freq: Status: Active Protocol: Document 12/24/18 13:35 LRN (Rec: 12/24/18 14:45 LRN [id number]) OP-PT Subjective Patient Comments Patient Comments States she hurt more over the weekend, had to take IBP mid morning today. Reports she hurts currently in the R hip, anterolateral upper thigh and lateral lower leg. States she did gardening this weekend. PT-OP-F Manual Assessment Start: 11/22/18 17:19 Freq: Status: Active Protocol: Document 11/29/18 11:19 LRN (Rec: 11/29/18 13:31 LRN [id number]) Manual Assessments Soft Tissue Assessment Soft Tissue Mobility Assessment Tenderness and tightness at R upper Gluteals, TFL and Iliopsoas at ASIS. PT-OP-H Neuro Start: 11/22/18 17:19 Freq: Status: Active Protocol: Document 11/29/18 11:19 LRN (Rec: 11/29/18 13:31 LRN [id number]) Sensation Evaluation Gross Sensation Gross Sensation WNL PT-OP-J Posture/Palpation/Skin Start: 11/22/18 17:19 Freq: Status: Active Protocol: Document 11/29/18 11:19 LRN (Rec: 11/29/18 13:31 LRN [id number]) Posture Evaluation Position Standing Evaluation View All positions Head/C-Spine Posture Side Bent Left Forward Head L-Spine Posture Decreased Lordosis Shoulder Posture (L) Elevated Scapula Posture (R) Depressed Pelvis Posture Posterior Tilted (R) Iliac Crest Superior Weight Distribution Weight Shifted Right Foot Arch (L) Medium Arch (R) Medium Arch Comments Posture Comments Sway back posturing. C-curve of thoracic/lumbar spine with apex left. PT-OP-K Range of Motion Start: 11/22/18 17:19 Freq: Status: Active Protocol: Document 12/19/18 09:03 LRN (Rec: 12/19/18 15:41 LRN [id number]) Hip Goniometric Range of Motion Hip Measured in Degrees Right Passive Testing Position Supine Abduction 35 Internal Rotation 47 External Rotation 47 Left Passive Testing Position Supine Abduction 35 Internal Rotation 47 External Rotation 45 PT-OP-L Special Tests Start: 11/22/18 17:19 Freq: Status: Active Protocol: Document 11/29/18 11:19 LRN (Rec: 11/29/18 13:31 LRN [id number]) Special Tests Hip Special Tests Distraction Test Test Results - Right Comments Rule out SIJ involvement Lateral Compression Test Test Results - Right Comments Rule out SIJ involvement Straight Leg Raise Test Results - Right Stinchfield Resisted Hip Flexion Test Results - Right Scour Test Test Results - Right LEONORA Test Results + Right Comments Pain with positioning into test position PT-OP-M Strength Start: 11/22/18 17:19 Freq: Status: Active Protocol: Document 11/29/18 11:19 LRN (Rec: 11/29/18 13:31 LRN [id number]) Hip Strength Hip Manual Muscle Testing Right Flexion (L2) 3 Fair Extension (S1) 2+ Poor+ Abduction 3 Fair Adduction 2- Poor- Internal Rotation 3 Fair Left Flexion (L2) 3 Fair Extension (S1) 3 Fair Abduction 3+ Fair+ External Rotation 3 Fair Internal Rotation 4+ Good+ Knee Strength Knee Manual Muscle Testing Right Reason Not Measured WFL Left Reason Not Measured WFL Ankle/Foot Strength Ankle and Foot Manual Muscle Testing Right Reason Not Measured WFL Left Reason Not Measured WFL PT-OP-Q Treatments Start: 11/22/18 17:19 Freq: Status: Active Protocol: Document 12/24/18 13:35 LRN (Rec: 12/24/18 14:38 LRN [id number]) Therapeutic Exercises Supine Exercises Self lumbar traction with chair Supine Exercise Name Self lumbar traction w/chair Reps/Minutes 3' x 2 Self manual traction w/arms Supine Exercise Name Self manual lumbar traction w/ arms Side bilateral Reps/Minutes 3' x 3 Prone Exercises Prone press ups Prone Exercise Name Prone press ups Reps/Minutes 10 x 3 Comments Pt had soreness in R lateral arm. Standing Exercises Self lumbar traction Standing Exercise Name Leaning over surface for lumbar traction Side bilateral Reps/Minutes 3' x 3 R hip AB Standing Exercise Name R Hip AB Side right Reps/Minutes 8' Comments Free standing, and against wall. Extra time to train proper positioning L arm/R leg lift to side Standing Exercise Name L arm/R leg lift Equipment Used Bar Reps/Minutes 10 x, holding 10 secs Posture against wall Standing Exercise Name Away from the wall with phy cuing Reps/Minutes 3' Self-Care/Home Management Treatment Education Patient Education Home Exercise Program Activities Self-Care/Home Management Activities HEP: Issued and reviewed ex's: Prone press ups and standing trunk ext with pics for self lumbar traction in supine with arms and chair and in standing. PT-OP-R Modalities Start: 11/22/18 17:19 Freq: Status: Active Protocol: Document 12/09/18 09:04 LRN (Rec: 12/09/18 09:49 LRN [id number]) Hot Pack/Cold Pack Treatment Cold Pack Location R hip Patient Position Supine Treatment Duration (minutes) 10 PT-OP-T Assessment and Plan Start: 11/22/18 17:19 Freq: Status: Active Protocol: Document 12/24/18 13:35 LRN (Rec: 12/24/18 14:38 LRN [id number]) Physical Therapy Assessment Progress Towards Goals Progress Towards Goals Slow Progress - Other Progress Comments Progress due to pt active lifestyle causing R LE radicular pain onset ( gardening). Assessment Summary Assessment Pt required extra time for training with each new activity/exercise. She required written instructions in addition to printed instructions for cuing of how to do exercises. Pt had difficulty performing R hip AB in standing properly, even with extra training. Further review is needed. Pt appears to have flared up her back with gardening activities and needed self care review of body mechanics with gardening. Weather change also may be effecting her arthritis pain onset. Pt has R hip pain with gait probably due to postural changes. Physical Therapy Plan Frequency and Duration Frequency of Treatment 2x/Week Plan of Care Start Date 11/29/18 Plan of Care End Date 01/31/19 Next Visit Focus/Plan Next Note Type Treatment Note Next Visit Plan Check R hip pain for bursitis and US to R hip for pain management as needed. Strengthen lengthened R lumbar paraspinals & lateral trunk Add stretch to R hip flexors when pt is more stable in her pain onset, Cont Joseph hip and core strengthening Monitor Gait for need of gait training.
--- NOTE | 2019-01-10 14:55 | PT.OTN ---
Current Diagnoses Osteoarthritis of hip, unspecified (01/10/19) Impingement syndrome of unspecified shoulder (01/10/19) Physical Therapy Treatment Note PT-OP-A Visit Information Start: 11/22/18 17:19 Freq: Status: Active Protocol: Document 01/10/19 11:22 LRN (Rec: 01/10/19 12:15 LRN [id number]) Out-Patient Physical Therapy Visit Information Visit Information Visit Type Progress Note Visit Start Time 11:22 Visit Stop Time 12:12 Total Visit Minutes 50 Visit Number 8 Number of HAIR MIXER Visits 0 Evaluation Information Evaluation Date 11/29/18 Precautions Precautions Osteoporosis Hearing problems Arthritis Grade 1 retrolisthesis of L2 on L3 L2-L3 centered mild focal dextrocurvature L3-L4 Mod to severe narrowing of L/S disc spaces Severe diffuse lumbar spondylosis and facet arthropathy PT-OP-B Current Condition Start: 11/22/18 17:19 Freq: Status: Active Protocol: Document 11/29/18 11:19 LRN (Rec: 11/29/18 12:45 LRN [id number]) Current Condition History of Current Condition Onset Date 7 yrs ago insidious onset. Current Complaints R hip pain, no R shoulder pain . History of Current Condition Used to ski and fell on the R hip a lot. Now with R lateral hip pain for dimas past 7 years that increased in pain intensity 2 yrs ago. Pain is evident at night when changing positions and when lying on the R hip. She walks every morning with pain in the R posterior hip. The last 3 days she has had new onset of pain down the R groin, but if she starts jogging she doesn't feel the pain until she stops jogging. She does international folk dancing, and after awhile she gets pain in the anterior R hip (at level of the ASIS) that radiates downward towards the groin. She states the R shoulder is fine now and she doesn't need therapy for the shoulder. Prior Treatments and Tests X-Rays: R hip: Mild joint degeneration . No fractrures or dislocations Lumbar Spine: Grade 1 retolisthesis of L2 on L3. Mild focal dextrocurvature centered at L2-L3 Mod to severe narrowing of Lumbar disc spaces L3-L4 Future Testing and Treatments Planned Possible cortisone injection, but pt would rather not. Treatment Goals Patient/Caregiver Goals Pt goal is: Walk daily without pain Dance without pain Sleep better at night without pain Pt agreeable to a goal of pain reduction to 2/10 saying a little pain is okay. Prior Functional Status Baseline Function- ADL's Independent Baseline Function- Mobility Independent Current Functional Impairments (Reported) Functional Limitations- ADL's Sleeping hindered by pain. Functional Limitations- Recreation/ Dancing prevented by pain. Hobbies Personal Factors Other Personal Factors That May Effect Scoliosis of spine. Therapy/Recovery Osteoporosis. PT-OP-C Subjective Start: 11/22/18 17:19 Freq: Status: Active Protocol: Document 01/10/19 11:22 LRN (Rec: 01/10/19 12:15 LRN [id number]) OP-PT Subjective Patient Comments Patient Comments Less pain, having a little pain daily, variable location: R lateral hip, R anterior proximal thigh, and R lateral lower leg. Doing ex's. Pain is 3-5/10. At night, once she has gone to bed and slept awhile, her R lateral hip is quite painful, 7/10. Wakes up several times at night with pain progressively increasing. Uses creams on the hip, takes deep breaths, gets up. Can sometimes lie on the L side with the R leg crossed over. PT-OP-F Manual Assessment Start: 11/22/18 17:19 Freq: Status: Active Protocol: Document 01/10/19 11:22 LRN (Rec: 01/10/19 12:15 LRN [id number]) Manual Assessments Soft Tissue Assessment Soft Tissue Mobility Assessment '''''''''''''''............... ... PT-OP-H Neuro Start: 11/22/18 17:19 Freq: Status: Active Protocol: Document 11/29/18 11:19 LRN (Rec: 11/29/18 13:31 LRN [id number]) Sensation Evaluation Gross Sensation Gross Sensation WNL PT-OP-J Posture/Palpation/Skin Start: 11/22/18 17:19 Freq: Status: Active Protocol: Document 01/10/19 11:22 LRN (Rec: 01/10/19 12:15 LRN [id number]) Posture Evaluation Comments Posture Comments Visual inspection: Lessening of severity of scoliosis. PT-OP-K Range of Motion Start: 11/22/18 17:19 Freq: Status: Active Protocol: Document 12/19/18 09:03 LRN (Rec: 12/19/18 15:41 LRN [id number]) Hip Goniometric Range of Motion Hip Measured in Degrees Right Passive Testing Position Supine Abduction 35 Internal Rotation 47 External Rotation 47 Left Passive Testing Position Supine Abduction 35 Internal Rotation 47 External Rotation 45 PT-OP-L Special Tests Start: 11/22/18 17:19 Freq: Status: Active Protocol: Document 11/29/18 11:19 LRN (Rec: 11/29/18 13:31 LRN [id number]) Special Tests Hip Special Tests Distraction Test Test Results - Right Comments Rule out SIJ involvement Lateral Compression Test Test Results - Right Comments Rule out SIJ involvement Straight Leg Raise Test Results - Right Stinchfield Resisted Hip Flexion Test Results - Right Scour Test Test Results - Right LEONORA Test Results + Right Comments Pain with positioning into test position PT-OP-M Strength Start: 11/22/18 17:19 Freq: Status: Active Protocol: Document 11/29/18 11:19 LRN (Rec: 11/29/18 13:31 LRN [id number]) Hip Strength Hip Manual Muscle Testing Right Flexion (L2) 3 Fair Extension (S1) 2+ Poor+ Abduction 3 Fair Adduction 2- Poor- Internal Rotation 3 Fair Left Flexion (L2) 3 Fair Extension (S1) 3 Fair Abduction 3+ Fair+ External Rotation 3 Fair Internal Rotation 4+ Good+ Knee Strength Knee Manual Muscle Testing Right Reason Not Measured WFL Left Reason Not Measured WFL Ankle/Foot Strength Ankle and Foot Manual Muscle Testing Right Reason Not Measured WFL Left Reason Not Measured WFL PT-OP-Q Treatments Start: 11/22/18 17:19 Freq: Status: Active Protocol: Document 01/10/19 11:22 LRN (Rec: 01/10/19 12:15 LRN [id number]) Cardio Equipment Bicycle (Upright) Duration (Minutes) 8 Resistance 3 Seat Position 3 Therapeutic Exercises Supine Exercises R hip flexor stretch Supine Exercise Name R Iliopsoas stretch Side right Comments followed immediately with active stretch (hip ext) Hip AB Supine Exercise Name R Hip AB Side right Reps/Minutes 10 x Comments Extra time taken for proper movement and training Prone Exercises Prone press ups Prone Exercise Name Prone press ups Reps/Minutes 10 x 3 Comments Pt had soreness in R lateral arm. Sidelying Exercises L sidelie Sidelying Exercise Name Hip AB, folded towel under ~ mid thoracic Side right Reps/Minutes Assisted Hip AB: 10x Standing Exercises R hip AB Standing Exercise Name R Hip AB Side right Reps/Minutes 8' Comments Free standing, and against wall. Extra time to train proper positioning L arm/R leg lift to side Standing Exercise Name L arm/R leg lift Equipment Used Bar Reps/Minutes 30 x, holding 10 secs Manual Therapy Treatment Soft Tissue Mobilization Coccyx Body Location Coccyx mob into R SB, Distal Coccyx tension release Mobilization Type Myofascial Release Sustained Pressure Body Position Prone Comments Depth: Superficial to moderate . Trunk Body Location Derotation of R rotated trunk Mobilization Type Myofascial Release Self-Care/Home Management Treatment Education Other Education Discussed proper sleeping position and requested pt try not to sleep on side with top leg draped forward rotating the pelvis. PT-OP-R Modalities Start: 11/22/18 17:19 Freq: Status: Active Protocol: Document 12/09/18 09:04 LRN (Rec: 12/09/18 09:49 LRN [id number]) Hot Pack/Cold Pack Treatment Cold Pack Location R hip Patient Position Supine Treatment Duration (minutes) 10 PT-OP-T Assessment and Plan Start: 11/22/18 17:19 Freq: Status: Active Protocol: Document 01/10/19 11:22 LRN (Rec: 01/10/19 12:15 LRN [id number]) Physical Therapy Assessment Goals Four Impairment R hip pain rated 4/10 with sleeping and moving in bed, interrupting sleep Fdc Goal (LTG) Pt will be able to move in bed at night with pain no greater than 2/10 and improve ability to sleep at night (less interrupted sleep due to pain) . LTG Duration 03/05/19 (12/19/18 Pain5/10) Three Impairment R hip pain rated 4/10 preventing participate in recreational dancing Photogravure Press Operator Goal (LTG) Pt will not be hindered to dance with intermittent R hip pain no greater than 2/10. LTG Duration 04/05/19(12/19/18: Pain after a bit of dancing) Two Impairment Pt hindered with walking due to 4/10 pain level. Fdc Goal (LTG) Pt will be able to walk with intermittent R hip pain rated no greater than 2/10 that will not hinder her ability to walk. LTG Duration 03/05/19 One Impairment Lacks independent self care program. Photogravure Press Operator Goal (LTG) Pt will be independent with a self care HEP to manage her pain. LTG Duration 04/05/19 Progress Towards Goals Progress Towards Goals Slow Progress - Other Progress Comments Progress due to pt active lifestyle causing R LE radicular pain onset ( gardening). Assessment Summary Assessment The pt has been see for 8 visits since 11/29/18. Pt is improving and is able to dance 1/2 hour and pain has lessened in intensity overall. Her back posture is improving. She has symptoms of lumbar nerve irritation with pain in the R LE in variable locations, probably due to her scoliosis (apex: T/ S left, L/S right). She shows no true signs of bursitis today. Further postural strengthening and body mechanics training is needed with review of self care to minimize onset of leg pain is needed. The pt will benefit from further skilled physical therapy since her rehab has been intermittent due to scheduling difficulties and progress has been slow. She has also been slow to recover from her flare up on 01/03/19. Physical Therapy Plan Frequency and Duration Frequency of Treatment 2x/Week Plan of Care Start Date 01/10/19 Plan of Care End Date 04/05/19 Therapeutic Interventions Therapeutic Interventions Gait Training Home Exercise Program Joint Mobilizations Manual Therapy Neuromuscular Re-education Patient/Caregiver Education Self-Care/Home Management Soft Tissue Mobilization Therapeutic Exercises Modalities Cold Pack/Ice Massage Electric Stimulation Hot Packs Ultrasound Next Visit Focus/Plan Next Note Type Treatment Note Next Visit Plan Strengthen the lengthened R lumbar paraspinals & lateral trunk, reviewed R Iliopsoas stretch. Cont Joseph hip and core strengthening Monitor Gait for need of gait training. Review self care lumbar traction, check sacral and coccyx positioning.
--- NOTE | 2019-01-10 14:56 | PT.OPPOC ---
Current Diagnoses Osteoarthritis of hip, unspecified (01/10/19) Impingement syndrome of unspecified shoulder (01/10/19) Provider Visit Care Team Role Provider Type Grazyna Obrien MD Attending Provider Non-Staff Primary Care Provider Specialty: Internal Medicine Address: [address] [place] [address], [id number] Email: [email or web address] Plan Of Care PT-OP-T Assessment and Plan Start: 11/22/18 17:19 Freq: Status: Active Protocol: Document 01/10/19 11:22 LRN (Rec: 01/10/19 12:15 LRN [id number]) Physical Therapy Assessment Goals Four Impairment R hip pain rated 4/10 with sleeping and moving in bed, interrupting sleep Caustics Loader Goal (LTG) Pt will be able to move in bed at night with pain no greater than 2/10 and improve ability to sleep at night (less interrupted sleep due to pain) . LTG Duration 03/05/19 (12/19/18 Pain5/10) Three Impairment R hip pain rated 4/10 preventing participate in recreational dancing Caustics Loader Goal (LTG) Pt will not be hindered to dance with intermittent R hip pain no greater than 2/10. LTG Duration 04/05/19(12/19/18: Pain after a bit of dancing) Two Impairment Pt hindered with walking due to 4/10 pain level. Usp Goal (LTG) Pt will be able to walk with intermittent R hip pain rated no greater than 2/10 that will not hinder her ability to walk. LTG Duration 03/05/19 One Impairment Lacks independent self care program. Caustics Loader Goal (LTG) Pt will be independent with a self care HEP to manage her pain. LTG Duration 04/05/19 Progress Towards Goals Progress Towards Goals Slow Progress - Other Progress Comments Progress due to pt active lifestyle causing R LE radicular pain onset ( gardening). Assessment Summary Assessment The pt has been see for 8 visits since 11/29/18. Pt is improving and is able to dance 1/2 hour and pain has lessened in intensity overall. Her back posture is improving. She has symptoms of lumbar nerve irritation with pain in the R LE in variable locations, probably due to her scoliosis (apex: T/ S left, L/S right). She shows no true signs of bursitis today. Further postural strengthening and body mechanics training is needed with review of self care to minimize onset of leg pain is needed. The pt will benefit from further skilled physical therapy since her rehab has been intermittent due to scheduling difficulties and progress has been slow. She has also been slow to recover from her flare up on 01/03/19. Physical Therapy Plan Frequency and Duration Frequency of Treatment 2x/Week Plan of Care Start Date 01/10/19 Plan of Care End Date 04/05/19 Therapeutic Interventions Therapeutic Interventions Gait Training Home Exercise Program Joint Mobilizations Manual Therapy Neuromuscular Re-education Patient/Caregiver Education Self-Care/Home Management Soft Tissue Mobilization Therapeutic Exercises Modalities Cold Pack/Ice Massage Electric Stimulation Hot Packs Ultrasound Next Visit Focus/Plan Next Note Type Treatment Note Next Visit Plan Strengthen the lengthened R lumbar paraspinals & lateral trunk, reviewed R Iliopsoas stretch. Cont Joseph hip and core strengthening Monitor Gait for need of gait training. Review self care lumbar traction, check sacral and coccyx positioning. Plan of Care Dates Plan of Care Start Date 01/10/19 Plan of Care End Date 04/05/19 Please Sign and Return: I have reviewed this Plan of Care and certify that the skilled therapy services above are required to meet the patient?s needs. Physician Signature Date Printed Name and Credentials Clinical Instructor Signature Printed Name and Credentials
--- NOTE | 2019-01-16 15:13 | PT.OTN ---
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 Current Complaints R hip pain, no R shoulder pain . History of Current Condition Used to ski and fell on the R hip a lot. Now with R lateral hip pain for idmas past 7 years that increased in pain intensity 2 yrs ago. Pain is evident at night when changing positions and when lying on the R hip. She walks every morning with pain in the R posterior hip. The last 3 days she has had new onset of pain down the R groin, but if she starts jogging she doesn't feel the pain until she stops jogging. She does international folk dancing, and after awhile she gets pain in the anterior R hip (at level of the ASIS) that radiates downward towards the groin. She states the R shoulder is fine now and she doesn't need therapy for the shoulder. Prior Treatments and Tests X-Rays: R hip: Mild joint degeneration . No fractrures or dislocations Lumbar Spine: Grade 1 retolisthesis of L2 on L3. Mild focal dextrocurvature centered at L2-L3 Mod to severe narrowing of Lumbar disc spaces L3-L4 Future Testing and Treatments Planned Possible cortisone injection, but pt would rather not. Treatment Goals Patient/Caregiver Goals Pt goal is: Walk daily without pain Dance without pain Sleep better at night without pain Pt agreeable to a goal of pain reduction to 2/10 saying a little pain is okay. Prior Functional Status Baseline Function- ADL's Independent Baseline Function- Mobility Independent Current Functional Impairments (Reported) Functional Limitations- ADL's Sleeping hindered by pain. Functional Limitations- Recreation/ Dancing prevented by pain. Hobbies Personal Factors Other Personal Factors That May Effect Scoliosis of spine. Therapy/Recovery Osteoporosis. PT-OP-C Subjective Start: 11/22/18 17:19 Freq: Status: Active Protocol: Document 01/16/19 13:35 LRN (Rec: 01/16/19 14:28 LRN [id number]) OP-PT Subjective Patient Comments Patient Comments Dancing longer, almost 2 hours (normal is 2.5 hrs). Able to walk 1.5-2 miles having a tiny bit of discomfort in R lateral hip. Nighttime pain is much better with a little bit of pain, because she tried to keep her legs straight. PT-OP-F Manual Assessment Start: 11/22/18 17:19 Freq: Status: Active Protocol: Document 01/10/19 11:22 LRN (Rec: 01/10/19 12:15 LRN [id number]) Manual Assessments Soft Tissue Assessment Soft Tissue Mobility Assessment '''''''''''''''............... ... PT-OP-H Neuro Start: 11/22/18 17:19 Freq: Status: Active Protocol: Document 11/29/18 11:19 LRN (Rec: 11/29/18 13:31 LRN [id number]) Sensation Evaluation Gross Sensation Gross Sensation WNL PT-OP-J Posture/Palpation/Skin Start: 11/22/18 17:19 Freq: Status: Active Protocol: Document 01/10/19 11:22 LRN (Rec: 01/10/19 12:15 LRN [id number]) Posture Evaluation Comments Posture Comments Visual inspection: Lessening of severity of scoliosis. PT-OP-K Range of Motion Start: 11/22/18 17:19 Freq: Status: Active Protocol: Document 12/19/18 09:03 LRN (Rec: 12/19/18 15:41 LRN [id number]) Hip Goniometric Range of Motion Hip Measured in Degrees Right Passive Testing Position Supine Abduction 35 Internal Rotation 47 External Rotation 47 Left Passive Testing Position Supine Abduction 35 Internal Rotation 47 External Rotation 45 PT-OP-L Special Tests Start: 11/22/18 17:19 Freq: Status: Active Protocol: Document 11/29/18 11:19 LRN (Rec: 11/29/18 13:31 LRN [id number]) Special Tests Hip Special Tests Distraction Test Test Results - Right Comments Rule out SIJ involvement Lateral Compression Test Test Results - Right Comments Rule out SIJ involvement Straight Leg Raise Test Results - Right Stinchfield Resisted Hip Flexion Test Results - Right Scour Test Test Results - Right LEONORA Test Results + Right Comments Pain with positioning into test position PT-OP-M Strength Start: 11/22/18 17:19 Freq: Status: Active Protocol: Document 11/29/18 11:19 LRN (Rec: 11/29/18 13:31 LRN [id number]) Hip Strength Hip Manual Muscle Testing Right Flexion (L2) 3 Fair Extension (S1) 2+ Poor+ Abduction 3 Fair Adduction 2- Poor- Internal Rotation 3 Fair Left Flexion (L2) 3 Fair Extension (S1) 3 Fair Abduction 3+ Fair+ External Rotation 3 Fair Internal Rotation 4+ Good+ Knee Strength Knee Manual Muscle Testing Right Reason Not Measured WFL Left Reason Not Measured WFL Ankle/Foot Strength Ankle and Foot Manual Muscle Testing Right Reason Not Measured WFL Left Reason Not Measured WFL PT-OP-Q Treatments Start: 11/22/18 17:19 Freq: Status: Active Protocol: Document 01/16/19 13:35 LRN (Rec: 01/16/19 14:28 LRN [id number]) Cardio Equipment Bicycle (Upright) Duration (Minutes) 10 Resistance 2 Seat Position 3 Therapeutic Exercises Supine Exercises Full body stretch Supine Exercise Name Reaching with hands and toes in opposite directions Reps/Minutes 2' BKFO Supine Exercise Name Core/Pelvic stab: BKFO Side bilateral Resistance Lev 2 T-Band Reps/Minutes 3' TA Rot hands/knees push Supine Exercise Name Hand to opposite knee Isometric hold Side bilateral Reps/Minutes 10 x 10 sec hold Lateral trunk Rotation Supine Exercise Name LTR Side bilateral Reps/Minutes 20x TA hands/knees push Supine Exercise Name TA>lift legs>hands/knees push Reps/Minutes 10x 10 sec hold R hip flexor stretch Supine Exercise Name R Iliopsoas stretch Side right Comments Followed immediately with active stretch (hip ext). Self manual traction w/arms Supine Exercise Name Verbal review: Self manual lumbar traction w/arms Sidelying Exercises Clamshell Sidelying Exercise Name R Clamshell Side right Reps/Minutes 10x Comments Stopped due to pain at R greater trochanter R sidelie Sidelying Exercise Name Stretch to L paraspinals Equipment Used towel 2-3x Reps/Minutes 2' Comments Manual stretch L sidelie Sidelying Exercise Name Hip AB, folded towel under ~ mid thoracic Side right Resistance 1# Reps/Minutes Hip AB: 10x3 Manual Therapy Treatment Joint Mobilizations Innominate mob Joint Correction for inflared R innominate Direction Contract relax MFR Body Position Supine Comments + response Self-Care/Home Management Treatment Education Patient Education Home Exercise Program Activities Self-Care/Home Management Activities Reviewed with pt R hip flexor stretch and I/S pt in T-Band BKFO ex. PT-OP-R Modalities Start: 11/22/18 17:19 Freq: Status: Active Protocol: Document 12/09/18 09:04 LRN (Rec: 12/09/18 09:49 LRN [id number]) Hot Pack/Cold Pack Treatment Cold Pack Location R hip Patient Position Supine Treatment Duration (minutes) 10 PT-OP-T Assessment and Plan Start: 11/22/18 17:19 Freq: Status: Active Protocol: Document 01/16/19 13:35 LRN (Rec: 01/16/19 14:28 LRN [id number]) Physical Therapy Assessment Goals Four Impairment R hip pain rated 4/10 with sleeping and moving in bed, interrupting sleep Shallot Packer Goal (LTG) Pt will be able to move in bed at night with pain no greater than 2/10 and improve ability to sleep at night (less interrupted sleep due to pain) . LTG Duration 03/05/19 (01/16/19 Pain ranges 2-5/10) Three Impairment R hip pain rated 4/10 preventing participate in recreational dancing Shallot Packer Goal (LTG) Pt will not be hindered to dance with intermittent R hip pain no greater than 2/10. LTG Duration 04/05/19 (12/19/18: Pain after a bit of dancing) Two Impairment Pt hindered with walking due to 4/10 pain level. Shallot Packer Goal (LTG) Pt will be able to walk with intermittent R hip pain rated no greater than 2/10 that will not hinder her ability to walk. LTG Duration 03/05/19 One Impairment Lacks independent self care program. Shallot Packer Goal (LTG) Pt will be independent with a self care HEP to manage her pain. LTG Duration 04/05/19 Progress Towards Goals Progress Towards Goals Slow Progress - Other Progress Comments Slow Progress due to pt active lifestyle causing R LE radicular pain onset. Goal One: Pt is progressed on HEP when appropriate. Goal Two: Pt is walking with variable onset of pain. She has, in the past few days, no pain with walking to the toilet in the morning. Goal Three: Pain is less with dancing. She is now able to tolerate almost 2 hours dancing of her normal 2.5 hours. Goal Four: Less pain sleeping at night; Pain ranges 2-5/10, waking 2x/night. 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 R hip pain appears more low back related, not bursitis. Pt has shown improvement as she has modified her sleeping position during the night, making waking in the morning is less painful. She has almost returned to her prior level with walking and dancing. Spinal positioning demonstrates a mild C-Curve with apex on R. If the pt is able to maintain proper posture day and night and limit her running/jumping she may be able to progress to painfree walking and dancing within the next 4 weeks, working more on her HEP. Physical Therapy Plan Frequency and Duration Frequency of Treatment 2x/Week Plan of Care Start Date 01/10/19 Plan of Care End Date 04/05/19 Next Visit Focus/Plan Next Note Type Treatment Note Next Visit Plan DC to HEP after 2 more visits spread over 6 weeks. Reassess progress to goals. Strengthen the lengthened R lumbar paraspinals & lateral trunk, and cont Joseph hip strengthening and core/pelvic stabilization. Monitor Gait for need of gait training. Review self care lumbar traction & R Iliopsoas stretch . Check sacral and coccyx positioning.
--- NOTE | 2019-01-24 14:44 | PT.OTN ---
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 Current Complaints R hip pain, no R shoulder pain . History of Current Condition Used to ski and fell on the R hip a lot. Now with R lateral hip pain for dimas past 7 years that increased in pain intensity 2 yrs ago. Pain is evident at night when changing positions and when lying on the R hip. She walks every morning with pain in the R posterior hip. The last 3 days she has had new onset of pain down the R groin, but if she starts jogging she doesn't feel the pain until she stops jogging. She does international folk dancing, and after awhile she gets pain in the anterior R hip (at level of the ASIS) that radiates downward towards the groin. She states the R shoulder is fine now and she doesn't need therapy for the shoulder. Prior Treatments and Tests X-Rays: R hip: Mild joint degeneration . No fractrures or dislocations Lumbar Spine: Grade 1 retolisthesis of L2 on L3. Mild focal dextrocurvature centered at L2-L3 Mod to severe narrowing of Lumbar disc spaces L3-L4 Future Testing and Treatments Planned Possible cortisone injection, but pt would rather not. Treatment Goals Patient/Caregiver Goals Pt goal is: Walk daily without pain Dance without pain Sleep better at night without pain Pt agreeable to a goal of pain reduction to 2/10 saying a little pain is okay. Prior Functional Status Baseline Function- ADL's Independent Baseline Function- Mobility Independent Current Functional Impairments (Reported) Functional Limitations- ADL's Sleeping hindered by pain. Functional Limitations- Recreation/ Dancing prevented by pain. Hobbies Personal Factors Other Personal Factors That May Effect Scoliosis of spine. Therapy/Recovery Osteoporosis. PT-OP-C Subjective Start: 11/22/18 17:19 Freq: Status: Active Protocol: Document 01/24/19 13:37 LRN (Rec: 01/24/19 14:43 LRN [id number]) OP-PT Subjective Patient Comments Patient Comments States she went walking a mile and a little discomfort in the R low back at sacral level . Night time pain with turning is a little less, 4/10 . Went dancing and had to sit after 1.5 hrs. R Hip hurt after sitting and goes away after awhile of walking around . Pain after walking a mile, no pain. PT-OP-F Manual Assessment Start: 11/22/18 17:19 Freq: Status: Active Protocol: Document 01/10/19 11:22 LRN (Rec: 01/10/19 12:15 LRN [id number]) Manual Assessments Soft Tissue Assessment Soft Tissue Mobility Assessment '''''''''''''''............... ... PT-OP-H Neuro Start: 11/22/18 17:19 Freq: Status: Active Protocol: Document 11/29/18 11:19 LRN (Rec: 11/29/18 13:31 LRN [id number]) Sensation Evaluation Gross Sensation Gross Sensation WNL PT-OP-J Posture/Palpation/Skin Start: 11/22/18 17:19 Freq: Status: Active Protocol: Document 01/10/19 11:22 LRN (Rec: 01/10/19 12:15 LRN [id number]) Posture Evaluation Comments Posture Comments Visual inspection: Lessening of severity of scoliosis. PT-OP-K Range of Motion Start: 11/22/18 17:19 Freq: Status: Active Protocol: Document 12/19/18 09:03 LRN (Rec: 12/19/18 15:41 LRN [id number]) Hip Goniometric Range of Motion Hip Right Passive Testing Position Supine Abduction 35 Internal Rotation 47 External Rotation 47 Left Passive Testing Position Supine Abduction 35 Internal Rotation 47 External Rotation 45 PT-OP-L Special Tests Start: 11/22/18 17:19 Freq: Status: Active Protocol: Document 11/29/18 11:19 LRN (Rec: 11/29/18 13:31 LRN [id number]) Special Tests Hip Special Tests Distraction Test Test Results - Right Comments Rule out SIJ involvement Lateral Compression Test Test Results - Right Comments Rule out SIJ involvement Straight Leg Raise Test Results - Right Stinchfield Resisted Hip Flexion Test Results - Right Scour Test Test Results - Right LEONORA Test Results + Right Comments Pain with positioning into test position PT-OP-M Strength Start: 11/22/18 17:19 Freq: Status: Active Protocol: Document 11/29/18 11:19 LRN (Rec: 11/29/18 13:31 LRN [id number]) Hip Strength Hip Manual Muscle Testing Right Flexion (L2) 3 Fair Extension (S1) 2+ Poor+ Abduction 3 Fair Adduction 2- Poor- Internal Rotation 3 Fair Left Flexion (L2) 3 Fair Extension (S1) 3 Fair Abduction 3+ Fair+ External Rotation 3 Fair Internal Rotation 4+ Good+ Knee Strength Knee Manual Muscle Testing Right Reason Not Measured WFL Left Reason Not Measured WFL Ankle/Foot Strength Ankle and Foot Manual Muscle Testing Right Reason Not Measured WFL Left Reason Not Measured WFL PT-OP-Q Treatments Start: 11/22/18 17:19 Freq: Status: Active Protocol: Document 01/24/19 13:37 LRN (Rec: 01/24/19 14:43 LRN [id number]) Therapeutic Exercises Supine Exercises Lateral hip/Piriformis Supine Exercise Name Lateral hip w/Piriformis Side right Reps/Minutes 4' Piriformis stretch Supine Exercise Name Piriformis stretch Side right Reps/Minutes 4' TA Rot hands/knees push Supine Exercise Name Hand to opposite knee Isometric hold Side bilateral Reps/Minutes 10 x 10 sec hold Lateral trunk Rotation Supine Exercise Name LTR Side bilateral Reps/Minutes 20x Fig 4 stretch Supine Exercise Name Fig 4 stretch f/b active stretch Side right Reps/Minutes 4' Sidelying Exercises R sidelie Sidelying Exercise Name Stretch to L paraspinals Equipment Used towel 2-3x Reps/Minutes 2' Comments Manual stretch L sidelie Sidelying Exercise Name Hip AB, folded towel under ~ mid thoracic Side right Resistance 1,2# Reps/Minutes Hip AB: 10x3, 8x165 Other Exercises Dancing movement training Other Exercise Name Core stabilization with dancing Side bilateral Reps/Minutes 10' Manual Therapy Treatment Manual Traction Gapping Left L/S Details Positional traction of Left L/ S Comments R sidelie with folded towels under R side Self-Care/Home Management Treatment Education Patient Education Home Exercise Program Activities Self-Care/Home Management Activities Issued & Reviewed HEP: Hip ER (fig 4) & Piriformis & Lateral hip w/Piriformis stretch. PT-OP-R Modalities Start: 11/22/18 17:19 Freq: Status: Active Protocol: Document 12/09/18 09:04 LRN (Rec: 12/09/18 09:49 LRN [id number]) Hot Pack/Cold Pack Treatment Cold Pack Location R hip Patient Position Supine Treatment Duration (minutes) 10 PT-OP-T Assessment and Plan Start: 11/22/18 17:19 Freq: Status: Active Protocol: Document 01/24/19 13:37 LRN (Rec: 01/24/19 14:43 LRN [id number]) Physical Therapy Assessment Goals Four Impairment R hip pain rated 4/10 with sleeping and moving in bed, interrupting sleep Jail Goal (LTG) Pt will be able to move in bed at night with pain no greater than 2/10 and improve ability to sleep at night (less interrupted sleep due to pain) . LTG Duration 03/05/19 (01/16/19 Pain ranges 2-5/10) Three Impairment R hip pain rated 4/10 preventing participate in recreational dancing Retort Fireman Goal (LTG) Pt will not be hindered to dance with intermittent R hip pain no greater than 2/10. LTG Duration 04/05/19 (12/19/18: Pain after a bit of dancing) Two Impairment Pt hindered with walking due to 4/10 pain level. Retort Fireman Goal (LTG) Pt will be able to walk with intermittent R hip pain rated no greater than 2/10 that will not hinder her ability to walk. LTG Duration 03/05/19 (01/24/19: GOAL MET) One Impairment Lacks independent self care program. Retort Fireman Goal (LTG) Pt will be independent with a self care HEP to manage her pain. 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 No complaints of R hip pain, only discomfort from L hip pain. Her night time pain is with turning in bed. She has almost returned to her prior level with dancing. Spinal positioning demonstrates a lessened C-Curve with apex on R. If the pt is able to maintain proper posture day and night, and limit her running/jumping she may be able to progress to painfree walking and dancing within the next 4 weeks, working more on her HEP. Physical Therapy Plan Frequency and Duration Frequency of Treatment 2x/Week Plan of Care Start Date 01/10/19 Plan of Care End Date 04/05/19 Next Visit Focus/Plan Next Note Type Treatment Note Next Visit Plan Recheck need for further PT with expected DC to HEP after 2 more visits spread over 6 weeks. Reassess progress to goals. Strengthen the lengthened R lumbar paraspinals & lateral trunk, and cont Joseph hip strengthening and core/pelvic stabilization. Review self care lumbar traction & R Iliopsoas stretch . Check sacral and coccyx positioning.
--- NOTE | 2019-02-11 14:46 | PT.OTN ---
Current Diagnoses Osteoarthritis of hip, unspecified (02/11/19) Impingement syndrome of unspecified shoulder (02/11/19) Physical Therapy Treatment Note PT-OP-A Visit Information Start: 11/22/18 17:19 Freq: Status: Active Protocol: Document 02/11/19 13:37 LRN (Rec: 02/11/19 14:25 LRN [id number]) Out-Patient Physical Therapy Visit Information Visit Information Visit Type Treatment Note Visit Start Time 13:37 Visit Stop Time 14:24 Total Visit Minutes 47 Visit Number 12 Number of ONLINE MARKETING ANALYST Visits 0 Evaluation Information Evaluation Date 11/29/18 Precautions Precautions Osteoporosis Hearing problems Arthritis Grade 1 retrolisthesis of L2 on L3 L2-L3 centered mild focal dextrocurvature L3-L4 Mod to severe narrowing of L/S disc spaces Severe diffuse lumbar spondylosis and facet arthropathy PT-OP-B Current Condition Start: 11/22/18 17:19 Freq: Status: Active Protocol: Document 11/29/18 11:19 LRN (Rec: 11/29/18 12:45 LRN [id number]) Current Condition History of Current Condition Onset Date 7 yrs ago insidious onset. Current Complaints R hip pain, no R shoulder pain . History of Current Condition Used to ski and fell on the R hip a lot. Now with R lateral hip pain for dimas past 7 years that increased in pain intensity 2 yrs ago. Pain is evident at night when changing positions and when lying on the R hip. She walks every morning with pain in the R posterior hip. The last 3 days she has had new onset of pain down the R groin, but if she starts jogging she doesn't feel the pain until she stops jogging. She does international folk dancing, and after awhile she gets pain in the anterior R hip (at level of the ASIS) that radiates downward towards the groin. She states the R shoulder is fine now and she doesn't need therapy for the shoulder. Prior Treatments and Tests X-Rays: R hip: Mild joint degeneration . No fractrures or dislocations Lumbar Spine: Grade 1 retolisthesis of L2 on L3. Mild focal dextrocurvature centered at L2-L3 Mod to severe narrowing of Lumbar disc spaces L3-L4 Future Testing and Treatments Planned Possible cortisone injection, but pt would rather not. Treatment Goals Patient/Caregiver Goals Pt goal is: Walk daily without pain Dance without pain Sleep better at night without pain Pt agreeable to a goal of pain reduction to 2/10 saying a little pain is okay. Prior Functional Status Baseline Function- ADL's Independent Baseline Function- Mobility Independent Current Functional Impairments (Reported) Functional Limitations- ADL's Sleeping hindered by pain. Functional Limitations- Recreation/ Dancing prevented by pain. Hobbies Personal Factors Other Personal Factors That May Effect Scoliosis of spine. Therapy/Recovery Osteoporosis. PT-OP-C Subjective Start: 11/22/18 17:19 Freq: Status: Active Protocol: Document 02/11/19 13:37 LRN (Rec: 02/11/19 14:28 LRN [id number]) OP-PT Subjective Patient Comments Patient Comments States walking is fine. Dancing, after 45' must sit because of R lateral hip pain. She sits for awhile and is able to continue. States she has some lateral hip pain but was doing a lot of lifting the day before. PT-OP-F Manual Assessment Start: 11/22/18 17:19 Freq: Status: Active Protocol: Document 01/10/19 11:22 LRN (Rec: 01/10/19 12:15 LRN [id number]) Manual Assessments Soft Tissue Assessment Soft Tissue Mobility Assessment '''''''''''''''............... ... PT-OP-H Neuro Start: 11/22/18 17:19 Freq: Status: Active Protocol: Document 11/29/18 11:19 LRN (Rec: 11/29/18 13:31 LRN [id number]) Sensation Evaluation Gross Sensation Gross Sensation WNL PT-OP-J Posture/Palpation/Skin Start: 11/22/18 17:19 Freq: Status: Active Protocol: Document 01/10/19 11:22 LRN (Rec: 01/10/19 12:15 LRN [id number]) Posture Evaluation Comments Posture Comments Visual inspection: Lessening of severity of scoliosis. PT-OP-K Range of Motion Start: 11/22/18 17:19 Freq: Status: Active Protocol: Document 12/19/18 09:03 LRN (Rec: 12/19/18 15:41 LRN [id number]) Hip Goniometric Range of Motion Hip Right Passive Testing Position Supine Abduction 35 Internal Rotation 47 External Rotation 47 Left Passive Testing Position Supine Abduction 35 Internal Rotation 47 External Rotation 45 PT-OP-L Special Tests Start: 11/22/18 17:19 Freq: Status: Active Protocol: Document 11/29/18 11:19 LRN (Rec: 11/29/18 13:31 LRN [id number]) Special Tests Hip Special Tests Distraction Test Test Results - Right Comments Rule out SIJ involvement Lateral Compression Test Test Results - Right Comments Rule out SIJ involvement Straight Leg Raise Test Results - Right Stinchfield Resisted Hip Flexion Test Results - Right Scour Test Test Results - Right LEONORA Test Results + Right Comments Pain with positioning into test position PT-OP-M Strength Start: 11/22/18 17:19 Freq: Status: Active Protocol: Document 11/29/18 11:19 LRN (Rec: 11/29/18 13:31 LRN [id number]) Hip Strength Hip Manual Muscle Testing Right Flexion (L2) 3 Fair Extension (S1) 2+ Poor+ Abduction 3 Fair Adduction 2- Poor- Internal Rotation 3 Fair Left Flexion (L2) 3 Fair Extension (S1) 3 Fair Abduction 3+ Fair+ External Rotation 3 Fair Internal Rotation 4+ Good+ Knee Strength Knee Manual Muscle Testing Right Reason Not Measured WFL Left Reason Not Measured WFL Ankle/Foot Strength Ankle and Foot Manual Muscle Testing Right Reason Not Measured WFL Left Reason Not Measured WFL PT-OP-Q Treatments Start: 11/22/18 17:19 Freq: Status: Active Protocol: Document 02/11/19 13:37 LRN (Rec: 02/11/19 14:25 LRN [id number]) Cardio Equipment Bicycle (Upright) Duration (Minutes) 8 Resistance 3 Seat Position 3 Other V cuing for stabilizing the core for hip hinging motion Gym Equipment Cable Column (Body Solid) Hip Adduction Details Seat 3 holes showing. Hips out at 20 degrees Resistance 10# Reps/Time 10 x 3, working on control of return Hip Abduction Details Seat 3 holes showing Resistance 10# Reps/Time 10 x 3, working on control of return Therapeutic Exercises Supine Exercises Piriformis stretch Supine Exercise Name Piriformis stretch Side right Reps/Minutes 4' Comments Support placed under R thigh to prevent lumbar R rot during stretch TA Rot hands/knees push Supine Exercise Name Hand to opposite knee Isometric hold & with resistance w/T-Ball & Band Side bilateral Resistance Lev 1 T-Band Equipment Used Blue T-Ball Reps/Minutes 8' Comments Extra time taken for proper form training Lateral trunk Rotation Supine Exercise Name LTR Side bilateral Equipment Used Blue T-Ball Reps/Minutes 20x Self manual traction w/arms Supine Exercise Name Verbal review: Self manual lumbar traction w/arms Fig 4 stretch Supine Exercise Name Fig 4 stretch f/b active stretch Side right Reps/Minutes 4' Comments Extra time taken to train pt on how to perfomr correctly Standing Exercises Lunge Standing Exercise Name Lunge Side bilateral Equipment Used // bars Reps/Minutes 10' Comments Extra time taken for proper form and activation of gluteals Therapeutic Activity Therapeutic Activity Lifting Name Lifting from floor Reps/Minutes 3' Comments Pt has fairly good positioning of the back but is not fully hip hinging. Tends to not use her legs. PT-OP-R Modalities Start: 11/22/18 17:19 Freq: Status: Active Protocol: Document 12/09/18 09:04 LRN (Rec: 12/09/18 09:49 LRN [id number]) Hot Pack/Cold Pack Treatment Cold Pack Location R hip Patient Position Supine Treatment Duration (minutes) 10 PT-OP-T Assessment and Plan Start: 11/22/18 17:19 Freq: Status: Active Protocol: Document 02/11/19 13:37 LRN (Rec: 02/11/19 14:25 LRN [id number]) Physical Therapy Assessment Goals Four Impairment R hip pain rated 4/10 with sleeping and moving in bed, interrupting sleep Group Home Goal (LTG) Pt will be able to move in bed at night with pain no greater than 2/10 and improve ability to sleep at night (less interrupted sleep due to pain) . LTG Duration 03/05/19 (01/16/19 Pain ranges 2-5/10) Three Impairment R hip pain rated 4/10 preventing participate in recreational dancing Mortgage Field Inspector Goal (LTG) Pt will not be hindered to dance with intermittent R hip pain no greater than 2/10. LTG Duration 04/05/19 (12/12/18: Pain after 45' of dancing) Two Impairment Pt hindered with walking due to 4/10 pain level. Group Home Goal (LTG) Pt will be able to walk with intermittent R hip pain rated no greater than 2/10 that will not hinder her ability to walk. LTG Duration 03/05/19 (01/24/19: GOAL MET) One Impairment Lacks independent self care program. Mortgage Field Inspector Goal (LTG) Pt will be independent with a self care HEP to manage her pain. LTG Duration 04/05/19 (01/24/19: Progressing) Progress Towards Goals Progress Towards Goals Progressing Toward Goals Assessment Summary Assessment R SIJ and radicular LE pain less during walking. Pain appears due to mechanical dysfunction of the spine and pelvis (R innominate). R hip pain today due to heavy lifting yesterday. Her night time pain with turning in bed was not assessed. She has almost returned to her prior level with dancing. Spinal positioning demonstrates a lessened C-Curve with apex on R. Pt may be ready for indep HEP placement next visit. Physical Therapy Plan Frequency and Duration Frequency of Treatment 2x/Week Plan of Care Start Date 01/10/19 Plan of Care End Date 04/05/19 Next Visit Focus/Plan Next Note Type Discharge Summary Next Visit Plan Probable DC, therefore recheck for DC or further PT. Reassess progress to goals. Review for self care: Strengthening the lengthened R lumbar paraspinals & lateral trunk, and cont Joseph hip strengthening and core/pelvic stabilization. Review R Iliopsoas stretch. Check sacral and coccyx positioning.
--- NOTE | 2019-02-17 17:37 | PT.OTN ---
Current Diagnoses Osteoarthritis of hip, unspecified (02/17/19) Impingement syndrome of unspecified shoulder (02/17/19) Physical Therapy Treatment Note PT-OP-A Visit Information Start: 11/22/18 17:19 Freq: Status: Active Protocol: Document 02/17/19 12:55 LRN (Rec: 02/17/19 13:36 LRN [id number]) Out-Patient Physical Therapy Visit Information Visit Information Visit Type Discharge Summary Visit Start Time 12:55 Visit Stop Time 13:34 Total Visit Minutes 39 Visit Number 13 Evaluation Information Evaluation Date 11/29/18 Precautions Precautions Osteoporosis Hearing problems Arthritis Grade 1 retrolisthesis of L2 on L3 L2-L3 centered mild focal dextrocurvature L3-L4 Mod to severe narrowing of L/S disc spaces Severe diffuse lumbar spondylosis and facet arthropathy PT-OP-B Current Condition Start: 11/22/18 17:19 Freq: Status: Active Protocol: Document 11/29/18 11:19 LRN (Rec: 11/29/18 12:45 LRN [id number]) Current Condition History of Current Condition Onset Date 7 yrs ago insidious onset. Current Complaints R hip pain, no R shoulder pain . History of Current Condition Used to ski and fell on the R hip a lot. Now with R lateral hip pain for dimas past 7 years that increased in pain intensity 2 yrs ago. Pain is evident at night when changing positions and when lying on the R hip. She walks every morning with pain in the R posterior hip. The last 3 days she has had new onset of pain down the R groin, but if she starts jogging she doesn't feel the pain until she stops jogging. She does international folk dancing, and after awhile she gets pain in the anterior R hip (at level of the ASIS) that radiates downward towards the groin. She states the R shoulder is fine now and she doesn't need therapy for the shoulder. Prior Treatments and Tests X-Rays: R hip: Mild joint degeneration . No fractrures or dislocations Lumbar Spine: Grade 1 retolisthesis of L2 on L3. Mild focal dextrocurvature centered at L2-L3 Mod to severe narrowing of Lumbar disc spaces L3-L4 Future Testing and Treatments Planned Possible cortisone injection, but pt would rather not. Treatment Goals Patient/Caregiver Goals Pt goal is: Walk daily without pain Dance without pain Sleep better at night without pain Pt agreeable to a goal of pain reduction to 2/10 saying a little pain is okay. Prior Functional Status Baseline Function- ADL's Independent Baseline Function- Mobility Independent Current Functional Impairments (Reported) Functional Limitations- ADL's Sleeping hindered by pain. Functional Limitations- Recreation/ Dancing prevented by pain. Hobbies Personal Factors Other Personal Factors That May Effect Scoliosis of spine. Therapy/Recovery Osteoporosis. PT-OP-C Subjective Start: 11/22/18 17:19 Freq: Status: Active Protocol: Document 02/17/19 12:55 LRN (Rec: 02/17/19 13:36 LRN [id number]) OP-PT Subjective Patient Comments Patient Comments Ready for DC from therapy because I can cont with the ex's. Pain with sleeping, rated 4/10, but sleeps well. Still waking 3-4 times a night . Happy because walking is not as painful, on level pain is 1-2/10 and not having to stop due to pain. Dancing is better, 1st 45' dancing pain is 1-2/10, last 45' towards the end pain is 6-7/10 for last 1/2 hour. PT-OP-F Manual Assessment Start: 11/22/18 17:19 Freq: Status: Active Protocol: Document 01/10/19 11:22 LRN (Rec: 01/10/19 12:15 LRN [id number]) Manual Assessments Soft Tissue Assessment Soft Tissue Mobility Assessment '''''''''''''''............... ... PT-OP-H Neuro Start: 11/22/18 17:19 Freq: Status: Active Protocol: Document 11/29/18 11:19 LRN (Rec: 11/29/18 13:31 LRN [id number]) Sensation Evaluation Gross Sensation Gross Sensation WNL PT-OP-J Posture/Palpation/Skin Start: 11/22/18 17:19 Freq: Status: Active Protocol: Document 01/10/19 11:22 LRN (Rec: 01/10/19 12:15 LRN [id number]) Posture Evaluation Comments Posture Comments Visual inspection: Lessening of severity of scoliosis. PT-OP-K Range of Motion Start: 11/22/18 17:19 Freq: Status: Active Protocol: Document 12/19/18 09:03 LRN (Rec: 12/19/18 15:41 LRN [id number]) Hip Goniometric Range of Motion Hip Right Passive Testing Position Supine Abduction 35 Internal Rotation 47 External Rotation 47 Left Passive Testing Position Supine Abduction 35 Internal Rotation 47 External Rotation 45 PT-OP-L Special Tests Start: 11/22/18 17:19 Freq: Status: Active Protocol: Document 11/29/18 11:19 LRN (Rec: 11/29/18 13:31 LRN [id number]) Special Tests Hip Special Tests Distraction Test Test Results - Right Comments Rule out SIJ involvement Lateral Compression Test Test Results - Right Comments Rule out SIJ involvement Straight Leg Raise Test Results - Right Stinchfield Resisted Hip Flexion Test Results - Right Scour Test Test Results - Right LEONORA Test Results + Right Comments Pain with positioning into test position PT-OP-M Strength Start: 11/22/18 17:19 Freq: Status: Active Protocol: Document 11/29/18 11:19 LRN (Rec: 11/29/18 13:31 LRN [id number]) Hip Strength Hip Manual Muscle Testing Right Flexion (L2) 3 Fair Extension (S1) 2+ Poor+ Abduction 3 Fair Adduction 2- Poor- Internal Rotation 3 Fair Left Flexion (L2) 3 Fair Extension (S1) 3 Fair Abduction 3+ Fair+ External Rotation 3 Fair Internal Rotation 4+ Good+ Knee Strength Knee Manual Muscle Testing Right Reason Not Measured WFL Left Reason Not Measured WFL Ankle/Foot Strength Ankle and Foot Manual Muscle Testing Right Reason Not Measured WFL Left Reason Not Measured WFL PT-OP-Q Treatments Start: 11/22/18 17:19 Freq: Status: Active Protocol: Document 02/17/19 12:55 LRN (Rec: 02/17/19 13:36 LRN [id number]) Cardio Equipment Bicycle (Upright) Duration (Minutes) 8 Resistance 3 Seat Position 3 Other V cuing for stabilizing the core for hip hinging motion Therapeutic Exercises Supine Exercises Lateral hip/Piriformis Supine Exercise Name Lateral hip w/Piriformis Side right Reps/Minutes 4' Piriformis stretch Supine Exercise Name Piriformis stretch Side right Reps/Minutes 4' Comments Support placed under R thigh to prevent lumbar R rot during stretch TA Rot hands/knees push Supine Exercise Name Hand to opposite knee Isometric hold & with resistance w/T-Ball & Band Side bilateral Reps/Minutes 4' Comments Isometric holding TA hands/knees push Supine Exercise Name TA>lift legs>hands/knees push Reps/Minutes 10x 10 sec hold R hip flexor stretch Supine Exercise Name R Iliopsoas stretch Side right Comments Followed immediately with active stretch (hip ext). Fig 4 stretch Supine Exercise Name Fig 4 stretch f/b active stretch Side right Reps/Minutes 4' Comments Extra time taken to train pt on how to perfomr correctly Prone Exercises Prone press ups Prone Exercise Name Prone press ups Reps/Minutes 10 x 3 Comments Pt had soreness in R lateral arm. Self-Care/Home Management Treatment Education Patient Education Home Exercise Program Activities Self-Care/Home Management Activities Verbal and handout review of HEP. PT-OP-R Modalities Start: 11/22/18 17:19 Freq: Status: Active Protocol: Document 12/09/18 09:04 LRN (Rec: 12/09/18 09:49 LRN [id number]) Hot Pack/Cold Pack Treatment Cold Pack Location R hip Patient Position Supine Treatment Duration (minutes) 10 PT-OP-T Assessment and Plan Start: 11/22/18 17:19 Freq: Status: Active Protocol: Document 02/17/19 12:55 LRN (Rec: 02/17/19 13:36 LRN [id number]) Physical Therapy Assessment Goals Four Impairment R hip pain rated 4/10 with sleeping and moving in bed, interrupting sleep Attending Physician Goal (LTG) Pt will be able to move in bed at night with pain no greater than 2/10 and improve ability to sleep at night (less interrupted sleep due to pain) . LTG Duration 03/05/19 (02/17/19 Pain ranges 2-4/10) Three Impairment R hip pain rated 4/10 preventing participate in recreational dancing Attending Physician Goal (LTG) Pt will not be hindered to dance with intermittent R hip pain no greater than 2/10. LTG Duration 04/05/19 (02/17/19: Pain 1-2/ 10 until the last 30' of dancing) Two Impairment Pt hindered with walking due to 4/10 pain level. Usp Goal (LTG) Pt will be able to walk with intermittent R hip pain rated no greater than 2/10 that will not hinder her ability to walk. LTG Duration 03/05/19 (01/24/19: GOAL MET) One Impairment Lacks independent self care program. Attending Physician Goal (LTG) Pt will be independent with a self care HEP to manage her pain. LTG Duration 04/05/19 (02/17/18: GOAL MET) Progress Towards Goals Progress Comments Goal 1: Goal Met for HEP. Goal 2: Goal Met. Pt has returned to walking with minimal pain (1-2/10). Goal 3: Goal Partially Met. Pt can now dance with pain no greater than 2/10 until the last 1/2 hr. Goal 4: Goal Not Met. Pt pain with sleeping remains about the same. Assessment Summary Assessment Pt has improved in function and has met her health and recreational goals of resuming prior activities. She continues to struggle with pain during the night that appears to be positionally related. We have talked about ways for her to prevent the positioning during her sleep that I believe is causing her pain onset (twisting of the spine), but the pt has yet to try this method. The pt will need to continue with her ex's to maintain her current status because of the mechanical dysfunctional of her spine. Physical Therapy Plan Frequency and Duration Frequency of Treatment 2x/Week Plan of Care Start Date 01/10/19 Plan of Care End Date 04/05/19 Discharge Physical Therapy Discharge Comments Pt feels ready to be placed on an independent HEP to maintain her current status. Although she is having difficulty with pain during the night she is satisfied to have returned to her prior activity level of tolerating walking and dancing. Thank you for your referral.
== END 2019-02-17 13:38 ==
LOC: PHYS 12:45
PROVIDERS: PCP Internal Medicine; Visit Provider Internal Medicine
DX: M75.40 Impingement syndrome of unspecified shoulder (principal); M16.9 Osteoarthritis of hip, unspecified
CPT/HCPCS: 97110; 97140; 97161; 97535

== ENCOUNTER → 2019-06-15 13:49 | Outpatient (CLI) | payer OTHER, SELFPAY | PROVIDERS: PCP Internal Medicine; Visit Provider Physician Assistant | DX: R30.0 Dysuria (principal) | CPT/HCPCS: 87077; 87086; 87186 ==

== ENCOUNTER → 2019-07-25 15:47 | Outpatient (CLI) | payer OTHER, SELFPAY | PROVIDERS: PCP Internal Medicine; Visit Provider Nurse Practitioner | DX: R30.0 Dysuria (principal) | CPT/HCPCS: 87077; 87086; 87186 ==

== ENCOUNTER → 2020-05-19 09:24 | Outpatient (CLI) | payer MEDICARE, SELFPAY ==
[2020-05-19 11:12] LABS: Add Manual Diff / Slide Review NO; Basophils Absolute Auto 0 /uL (0-100); Basophils Percent Auto 0.5 % (0-2); Eosinophils Absolute Auto 0 /uL (0-450); Eosinophils Percent Auto 0.6 % (2-4); Hematocrit 37.7 % (36-46); Hemoglobin 12.5 g/dL (12.0-16.0); Lymphocytes Absolute Auto 2000 /uL (1100-4500); Lymphocytes Percent Auto 27.2 % (25-40); Mean Corpuscular HGB Conc 33.1 % (30-36); Mean Corpuscular Hemoglobin 30.9 PG (26-34); Mean Corpuscular Volume 93.5 fL (80-100); Monocytes Absolute Auto 800 /uL (0-900); Monocytes Percent Auto 11.3 % (3-14); Neutrophils Absolute Auto 4400 /uL (1500-7000); Neutrophils Percent Auto 60.4 % (50-75); Platelet Count 423 X10^3/uL (150-400); Red Blood Cell Count 4.03 X10^6/uL (4.0-5.2); Red Cell Distribution Width 14.1 % (11.6-14.8); White Blood Cell Count 7.4 X10^3/uL (4.5-11.0)
[2020-05-19 11:36] LABS: Alanine Aminotransferase 15 IU/L (<35); Albumin 3.7 g/dL (3.5-5.0); Albumin Globulin Ratio 0.9 (1.0-2.8); Alkaline Phosphatase 69 U/L (38-126); Aspartate Aminotransferase 22 IU/L (14-36); BUN Creatinine Ratio 20.3 (6-22); Bilirubin Total 0.4 mg/dL (0.2-1.3); Blood Urea Nitrogen 13 mg/dL (7-17); Calcium 9.1 mg/dL (8.4-10.2); Carbon Dioxide 31 mmol/L (22-32); Chloride 97 mmol/L (98-107); Estimated Glomerular Filt Rate > 60.0 mL/min (>60); Glucose 119 mg/dL (80-110); HEMOLYSIS < 15 (0-50); Potassium 3.7 mmol/L (3.4-5.1); Sodium 133 mmol/L (137-145); Total Protein 7.7 g/dL (6.3-8.2)
[2020-05-19 12:19] LABS: Thyroid Stimulating Hormone 4.22 uIU/mL (0.47-4.68)
== END ==
PROVIDERS: PCP Internal Medicine; Referring Provider Internal Medicine; Visit Provider Internal Medicine
DX: R19.7 Diarrhea, unspecified (principal); I10 Essential (primary) hypertension
CPT/HCPCS: 36415; 80053; 84443; 85025

== ENCOUNTER → 2020-05-25 09:16 | Outpatient (CLI) | payer MEDICARE, SELFPAY ==
[2020-05-25 10:58] LABS: Occult Blood 1 Negative (Negative); Occult Blood 2 Negative (Negative)
[2020-05-25 12:08] LABS: Clostridium Difficile Tox PCR Negative for C. diff
[2020-05-26 11:38] LABS: Fats, Neutral Normal (.); Fats, Total Normal (.)
[2020-05-26 18:20] LABS: Tissue Transglutaminase IgA <2 U/mL (0-3); Tissue Transglutaminase IgG 2 U/mL (0-5)
== END ==
PROVIDERS: PCP Internal Medicine; Referring Provider Internal Medicine; Visit Provider Internal Medicine
DX: E87.1 Hypo-osmolality and hyponatremia (principal); R19.7 Diarrhea, unspecified; I10 Essential (primary) hypertension
CPT/HCPCS: 36415; 82270; 82705; 83516; 87205; 87329; 87493

== ENCOUNTER → 2020-06-11 14:53 | Outpatient (ROUT) | payer MEDICARE, SELFPAY ==
[2020-06-11 16:37] LABS: Sodium Urine Random 47 mmol/L (30-90)
[2020-06-11 19:36] LABS: BUN Creatinine Ratio 37.7 (6-22); Blood Urea Nitrogen 20 mg/dL (7-17); Calcium 9.4 mg/dL (8.4-10.2); Carbon Dioxide 30 mmol/L (22-32); Chloride 103 mmol/L (98-107); Estimated Glomerular Filt Rate > 60.0 mL/min (>60); Glucose 90 mg/dL (80-110); HEMOLYSIS 39 (0-50); Potassium 4.2 mmol/L (3.4-5.1); Sodium 136 mmol/L (137-145)
[2020-06-14 17:07] LABS: Osmolality, Serum 309 mOsmol/kg (280-301)
[2020-06-14 17:07] LABS: Osmolality Urine 424 mOsmol/kg (.)
== END ==
PROVIDERS: PCP Internal Medicine; Visit Provider Internal Medicine
DX: I10 Essential (primary) hypertension (principal); E87.1 Hypo-osmolality and hyponatremia
CPT/HCPCS: 80048; 82088; 83930; 83935; 84244; 84300

== ENCOUNTER → 2020-07-05 13:23 | Outpatient (CLI) | payer MEDICARE, SELFPAY ==
[2020-07-05 14:04] LABS: COVID19 -Nasal RAPID Negative (Negative)
== END ==
PROVIDERS: PCP Internal Medicine; Visit Provider Physician Assistant
DX: Z11.59 Encounter for screening for other viral diseases (principal)
CPT/HCPCS: 87635

== ENCOUNTER 2020-07-07 08:21 | Day surgery (SDC) | payer MEDICARE, SELFPAY ==
--- NOTE | 2020-07-06 19:11 | PM.PREOP ---
Pre-operative Note COVID-19 COVID-19 status: Negative Interval Note History & Physical reviewed/Exam performed by Physician: Yes Changes to H&P: No
--- NOTE | 2020-07-06 20:04 | PM.OP.1 ---
Operative Date/Time/Diagnoses Date of procedure: 07/07/20 Time of procedure: 09:45 Procedure & Clinicians Procedure: Preoperative diagnoses: 1. 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 2. Hypertension Postoperative diagnoses: 1. Cataract removed by phacoemulsification with placement of posterior chamber intraocular lens. Procedure: Phacoemulsification with posterior chamber intraocular lens implant Surgeon: Carol Aldrich MD Complications: None Specimen: None Implant: ZCBOO+21.0 Blood loss: None Anesthesia: Retrobulbar with monitored standby Description of procedure: Patient presents with a complaint of decreased vision due to cataract which is affecting activities of daily living. 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 The patient wants surgery to improve vision. 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 The patient was taken to the operating room and given IV sedation. A retrobulbar block consisting of 6 cc of 2% xylocaine without epinephrine mixed half and half with 0.5% Marcaine with 1 cc of hyaluronidase added is placed between the medial and lateral 1/3 of the inferior orbital rim. The eye is manually massaged for 30 sec, prepped using Betadine solution, and draped in the usual sterile fashion. Temporal approach was made, a 1 mm side-port incision was made 90? from the proposed clear corneal incision position. Phenylephrine 1.5% mixed with 1% xylocaine 0.2 cc was placed into the anterior chamber. Viscoat followed by Vivienne was then placed. A 2.6 mm clear incision with a 2.6 mm blade was placed. A 360 degree capsulorrhexis style capsulotomy was then performed with a cystitome needle on a Healon. Hydrodelineation and hydrodissection were performed. The phacoemulsification unit is introduced, and sculpting notice used to groove the central lens. It is then removed in chopping mode. Epi nucleus is removed with epinuclear mode and irrigation aspiration was used to remove the peripheral cortex. The posterior capsule is polished. The intraocular lens is selected, inspected, power confirmed, and placed in the posterior chamber. The wound was stromally hydrated and tested for leaks, there was none and it was left sutureless. Vigamox 0.1 cc was placed into the anterior chamber. Kenalog 0.2 cc was placed in the superior subconjunctival space. A drop of antibiotic and was placed and the eye was patched and shielded. The patient was stable and returned to the recovery room in excellent condition. Dictated by: Carol Aldrich MD Copy to: [facility] Same procedure as scheduled: Yes
[2020-07-07] MEDS: PROPARACAINE 0.5% OPHTH SOL 2 DROPS EYE-OP (09:02)
[2020-07-07] MEDS: CATARACT EYE COMPOUND (10 DROPS/SYRINGE) 3 DROPS EYE-OP (09:04)
[2020-07-07 09:05] VITALS: BP 146/74; PULSE 65; RESP 16; TEMP 36.3; O2SAT 98; BMI 19.5
[2020-07-07] MEDS: CHONDROIDTIN/SOD HYALURONATE 1.05 ML SYRINGE INTRAOCULA (09:59)
[2020-07-07] MEDS: MOXIFLOXACIN INJ 5 MG/ML VIAL EYE-OP (10:00)
[2020-07-07] MEDS: ERYTHROMYCIN OPHTH 1 GM OINT 1 APPLIC EYE-RIGHT (10:00)
[2020-07-07] MEDS: HYALURONATE SODIUM 10 MG/ML SYRINGE INJ (10:00)
[2020-07-07] MEDS: PHENYLEPHRINE/LIDOCAINE VIAL (OR) 0.2 ML EYE-OP (10:00)
[2020-07-07] MEDS: BALANCED SALT IRRIG SOLN NO.2 500 ML, EPINEPHrine 1 MG IRR (10:01)
[2020-07-07] MEDS: LIDOCAINE 2% 4 ML, BUPIVACAINE 0.5% (PF) 4 ML, HYALURONIDASE 150 UNIT INJ (10:01)
[2020-07-07] MEDS: TRIAMCINOLONE 50 MG/5 ML VIAL INJ (10:01)
[2020-07-07 10:33] VITALS: BP 140/73; PULSE 59; RESP 16; TEMP 36.9; O2SAT 99
== END 2020-07-07 10:48 | disposition home or self-care (01) ==
PROVIDERS: PCP Internal Medicine; Referring Provider Internal Medicine; Visit Provider Ophthalmology
PROC: (CPT 66984; principal; 2020-07-07 09:45)
DX: H25.811 Combined forms of age-related cataract, right eye (principal); I10 Essential (primary) hypertension
CPT/HCPCS: 66984; J0171; J2704; J3301; J3470

== ENCOUNTER → 2020-07-19 09:08 | Outpatient (CLI) | payer MEDICARE, SELFPAY ==
[2020-07-19 10:06] LABS: COVID19 -Nasal RAPID Negative (Negative)
== END ==
PROVIDERS: PCP Internal Medicine; Visit Provider Physician Assistant
DX: Z01.812 Encounter for preprocedural laboratory examination (principal); Z20.828 Contact with and (suspected) exposure to other viral communicable diseases
CPT/HCPCS: 87635; C9803

== ENCOUNTER 2020-07-21 12:55 | Day surgery (SDC) | payer MEDICARE, SELFPAY ==
--- NOTE | 2020-07-20 18:34 | PM.PREOP ---
Pre-operative Note COVID-19 COVID-19 status: Negative Interval Note History & Physical reviewed/Exam performed by Physician: Yes Changes to H&P: No
--- NOTE | 2020-07-21 08:09 | PM.OP.1 ---
Operative Date/Time/Diagnoses Date of procedure: 07/21/20 Time of procedure: 14:15 Procedure & Clinicians Procedure: Preoperative diagnoses: 1. 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 2. Arthritis 2. ZCBOO+22.5 myopic target. Postoperative diagnoses: 1. Cataract removed by phacoemulsification with placement of posterior chamber intraocular lens. Procedure: Phacoemulsification with posterior chamber intraocular lens implant Surgeon: Carol Aldrich MD Complications: None Specimen: None Implant: ZCBOO+22.5 Blood loss: None Anesthesia: Retrobulbar with monitored standby Description of procedure: Patient presents with a complaint of decreased vision due to cataract which is affecting activities of daily living distance and near. The patient wants surgery to improve vision. She chooses a myopic target. She understands the extra risk during COVID-19 epidemic and wishes to proceed. She has tested negative for virus prior to surgery. The patient was taken to the operating room and given IV sedation. A retrobulbar block consisting of 6 cc of 2% xylocaine without epinephrine mixed half and half with 0.5% Marcaine with 1 cc of hyaluronidase added is placed between the medial and lateral 1/3 of the inferior orbital rim. The eye is manually massaged for 30 sec, prepped using Betadine solution, and draped in the usual sterile fashion. Temporal approach was made, a 1 mm side-port incision was made 90? from the proposed clear corneal incision position. Phenylephrine 1.5% mixed with 1% xylocaine 0.2 cc was placed into the anterior chamber. Viscoat followed by Healon was then placed. A 2.6 mm clear incision with a 2.6 mm blade was placed. A 360 degree capsulorrhexis style capsulotomy was then performed with a cystitome needle on a Healon. Hydrodelineation and hydrodissection were performed. The phacoemulsification unit is introduced, and sculpting notice used to groove the central lens. It is then removed in chopping mode. Epi nucleus is removed with epinuclear mode and irrigation aspiration was used to remove the peripheral cortex. The posterior capsule is polished. The intraocular lens is selected, inspected, power confirmed, and placed in the posterior chamber. The wound was stromally hydrated and tested for leaks, there was none and it was left sutureless. Vigamox 0.1 cc was placed into the anterior chamber. Kenalog 0.2 cc was placed in the superior subconjunctival space. A drop of antibiotic and was placed and the eye was patched and shielded. The patient was stable and returned to the recovery room in excellent condition. Dictated by: Carol Aldrich MD Copy to: [facility] Same procedure as scheduled: Yes
[2020-07-21 13:29] VITALS: BP 157/81; PULSE 69; RESP 16; TEMP 37; O2SAT 98; BMI 19.3
[2020-07-21] MEDS: PROPARACAINE 0.5% OPHTH SOL 2 DROPS EYE-OP (13:41)
[2020-07-21] MEDS: CATARACT EYE COMPOUND (10 DROPS/SYRINGE) 3 DROPS EYE-OP (13:41)
[2020-07-21] MEDS: PHENYLEPHRINE/LIDOCAINE VIAL (OR) 0.2 ML EYE-OP (15:01)
[2020-07-21] MEDS: LIDOCAINE 2% 4 ML, BUPIVACAINE 0.5% (PF) 4 ML, HYALURONIDASE 150 UNIT INJ (15:01)
[2020-07-21] MEDS: HYALURONATE SODIUM 10 MG/ML SYRINGE INJ (15:02)
[2020-07-21] MEDS: CHONDROIDTIN/SOD HYALURONATE 1.05 ML SYRINGE INTRAOCULA (15:02)
[2020-07-21] MEDS: MOXIFLOXACIN INJ 5 MG/ML VIAL EYE-OP (15:03)
[2020-07-21] MEDS: TRIAMCINOLONE 50 MG/5 ML VIAL INJ (15:04)
[2020-07-21] MEDS: BALANCED SALT IRRIG SOLN NO.2 500 ML, EPINEPHrine 1 MG IRR (15:04)
[2020-07-21] MEDS: ERYTHROMYCIN OPHTH 1 GM OINT 1 APPLIC EYE-LEFT (15:05)
[2020-07-21 15:30] VITALS: BP 121/63; PULSE 69; RESP 15; TEMP 36.3; O2SAT 97
== END 2020-07-21 15:47 | disposition home or self-care (01) ==
LOC: OR 12:57
PROVIDERS: PCP Internal Medicine; Referring Provider Internal Medicine; Visit Provider Ophthalmology
PROC: (CPT 66984; principal; 2020-07-21 14:15)
DX: H25.812 Combined forms of age-related cataract, left eye (principal)
CPT/HCPCS: 66984; J0171; J2250; J2704; J3010; J3301; J3470

== ENCOUNTER → 2020-09-15 14:14 | Outpatient (CLI) | payer OTHER, SELFPAY | PROVIDERS: PCP Internal Medicine; Visit Provider Physician Assistant | DX: N30.00 Acute cystitis without hematuria (principal) | CPT/HCPCS: 87077; 87086 ==

== ENCOUNTER → 2020-10-26 14:12 | Outpatient (CLI) | payer MEDICARE, SELFPAY ==
[2020-10-26] MEDS: COVID-19 VACC #1, MRNA(MOD) 100 MCG/0.5 ML VIAL IM (14:20)
== END ==
PROVIDERS: PCP Internal Medicine; Visit Provider Internal Medicine
DX: Z23 Encounter for immunization (principal)
CPT/HCPCS: 0011A; 91301

== ENCOUNTER → 2020-11-24 14:32 | Outpatient (CLI) | payer MEDICARE, SELFPAY ==
[2020-11-24] MEDS: COVID-19 VACC #2, MRNA(MOD) 100 MCG/0.5 ML VIAL IM (14:39)
== END ==
PROVIDERS: PCP Family Medicine; Visit Provider Internal Medicine
DX: Z23 Encounter for immunization (principal)
CPT/HCPCS: 0012A; 91301

== ENCOUNTER → 2023-04-29 09:55 | Outpatient (CLI) | payer MEDICARE, SELFPAY | PROVIDERS: PCP Family Medicine; Visit Provider Physician Assistant | DX: R10.9 Unspecified abdominal pain (principal) | CPT/HCPCS: 87077; 87086; 87186 ==

== ENCOUNTER → 2023-05-07 09:02 | Outpatient (CLI) | payer MEDICARE, SELFPAY | PROVIDERS: PCP Family Medicine; Visit Provider Physician Assistant | DX: R30.0 Dysuria (principal); R35.0 Frequency of micturition | CPT/HCPCS: 87086 ==

== ENCOUNTER → 2023-06-04 08:25 | Outpatient (CLI) | payer MEDICARE, SELFPAY | PROVIDERS: PCP Family Medicine; Visit Provider Student in an Organized Health Care Education/Training Program | DX: R30.0 Dysuria (principal) | CPT/HCPCS: 87077; 87086; 87186 ==

== ENCOUNTER → 2023-06-18 09:04 | Outpatient (CLI) | payer MEDICARE, SELFPAY | PROVIDERS: PCP Family Medicine; Visit Provider Physician Assistant | DX: R30.0 Dysuria (principal) | CPT/HCPCS: 87077; 87086; 87186 ==

== ENCOUNTER → 2025-02-25 09:45 | Outpatient (CLI) | payer MEDICARE, SELFPAY ==
--- NOTE | 2025-02-25 09:48 | DI.RAD.S_ITS ---
PROCEDURE: XR SHOULDER RT MIN 2V INDICATIONS: Right shoulder pain TECHNIQUE: Three views of the right shoulder were acquired. COMPARISON: None. FINDINGS: Bones: There are no osseous abnormalities. Acromioclavicular and glenohumeral joints: Mild degeneration both joints. Soft tissues: No soft tissue swelling, calcification or mass. IMPRESSION: Mild degeneration . Dictated by: Charles Ni M.D. on 02/26/2025 at 12:20 Approved by: Charles Ni M.D. on 02/26/2025 at 12:21
== END ==
LOC: RAD 09:47
PROVIDERS: PCP Family Medicine; Referring Provider Family Medicine; Visit Provider Family Medicine
DX: M19.011 Primary osteoarthritis, right shoulder (principal); M25.511 Pain in right shoulder
CPT/HCPCS: 73030

== ENCOUNTER → 2025-05-16 11:13 | Outpatient (CLI) | payer MEDICARE, SELFPAY | PROVIDERS: PCP Family Medicine; Visit Provider Nurse Practitioner Family | DX: R30.0 Dysuria (principal) | CPT/HCPCS: 87077; 87086 ==

== ENCOUNTER → 2025-05-30 17:17 | Outpatient (CLI) | payer MEDICARE, SELFPAY | PROVIDERS: PCP Family Medicine; Visit Provider Chiropractor | DX: R30.0 Dysuria (principal) | CPT/HCPCS: 87086 ==